=== PATIENT | male | born 1960 | race Caucasian/White ===

== ENCOUNTER 2018-08-04 12:15 | Emergency (ER) | payer OTHER ==
[~2018-08-04] VITALS: Ht 185.4 cm; Wt 59.4 kg
[~2018-08-04 12:15] MED LIST: /SYST15OP OU; ARTIDRO OU; FOLI1TAB86 PO; MULTCAP11 PO; NEXI40GR PO; NICO21PAT EXT; OCUVTA PO; PRED1SUS6 OD; PRESCAP PO; THIA50CA PO; VITACAP8 PO; [UNRECOGNIZED DRUG - OTHER] OU; [UNRECOGNIZED DRUG - REMARK] TOP
[2018-08-04] MEDS ORDERED: VENTAER (12:31)
[2018-08-04] MEDS ORDERED: TRAM50TA2 (12:31)
[2018-08-04] MEDS ORDERED: MULTIVITAMIN -ADULT INJECTION 10 ML, THIAMINE INJection 100 MG, FOLIC ACID 1 MG in NS 1... IV ONE (13:00)
[2018-08-04 13:39] LABS: BLOOD UREA NITROGEN 6 MG/DL (7-18); CARBON DIOXIDE LEVEL 27 MEQ/L (21-32); CHLORIDE LEVEL 101 MEQ/L (98-107); CREATININE FOR GFR 0.69 MG/DL (0.70-1.30); GLOMERULAR FILTRATION RATE > 60.0 (>56); GLUCOSE, FASTING 84 MG/DL (70-100); MAGNESIUM LEVEL 2.2 MG/DL (1.8-2.4); POTASSIUM SERUM 3.8 MEQ/L (3.5-5.1); SODIUM LEVEL 136 MEQ/L (136-145)
[2018-08-04 17:54] VITALS: BP 150/96
== END 2018-08-04 17:57 | disposition home or self-care (01) ==
LOC: M ED 12:15
DX: E50.9 Vitamin A deficiency, unspecified (principal); H04.121 Dry eye syndrome of right lacrimal gland; Z87.19 Personal history of other diseases of the digestive system; F17.210 Nicotine dependence, cigarettes, uncomplicated; Z79.899 Other long term (current) drug therapy
CPT/HCPCS: 36415; 80048; 83735; 84590; 96365; 96366; 99284; J3411

== ENCOUNTER 2019-09-12 01:32 | Inpatient (IN) | payer OTHER ==
[~2019-09-12] VITALS: Ht 188 cm; Wt 64.2 kg
[2019-09-12] VITALS (10 sets, daily range): BP systolic 97–116; BP diastolic 59–74
[~2019-09-12 01:32] MED LIST changes: -/SYST15OP OU; +NICO21DI3 EXT; -NICO21PAT EXT; -OCUVTA PO; +SYST1SOL OU; +TRAM50TA2 PO; +VENTAER; +[UNRECOGNIZED DRUG - CODE] PO
[2019-09-12] MEDS ORDERED: NS 1,000 ML IV ONE (01:45)
[2019-09-12] MEDS ORDERED: levETIRAcetam INJection 750 MG in D5W 100 ML IV ONE (02:00)
[2019-09-12 02:11] LABS: BASO # 0.1 10^3/uL (0.0-0.2); BASO % 0.6 % (0.0-1.0); EOS # 0.1 10^3/uL (0.0-0.5); EOS % 1.1 % (0.0-3.0); HEMATOCRIT 38.6 % (42.0-52.0); HEMOGLOBIN 13.2 g/dl (13.5-17.5); LYMPH # 1.4 10^3/uL (1.5-5.0); MEAN CORPUSCULAR HEMOGLOBIN 31.5 pg (27.0-33.0); MEAN CORPUSCULAR HGB CONC 34.2 g/dl (32.0-36.5); MEAN CORPUSCULAR VOLUME 92.1 fl (80.0-96.0); MONO # 0.8 10^3/uL (0.0-0.8); MONO % 8.5 % (0.0-5.0); NEUTROPHILS # 6.7 10^3/uL (1.5-8.5); NEUTROPHILS % 73.8 % (36.0-66.0); PLATELET COUNT, AUTOMATED 263 10^3/uL (150-450); RED BLOOD COUNT 4.19 10^6/uL (4.30-6.10)
[2019-09-12 02:45] LABS: ACETAMINOPHEN LEVEL < 2.0 UG/ML (10.0-30.0); ALBUMIN 3.6 GM/DL (3.2-5.2); ALT/SGPT 23 U/L (12-78); BILIRUBIN,DIRECT 0.1 MG/DL (0.0-0.2); BILIRUBIN,TOTAL 0.3 MG/DL (0.2-1.0); BLOOD UREA NITROGEN 8 MG/DL (7-18); CALCIUM LEVEL 8.4 MG/DL (8.8-10.2); CARBON DIOXIDE LEVEL 27 MEQ/L (21-32); CHLORIDE LEVEL 102 MEQ/L (98-107); CK-MB VALUE MASS 1.8 NG/ML (<3.6); CPK CREATINE PHOSPHOKINASE 137 U/L (39-308); CREATININE FOR GFR 0.64 MG/DL (0.70-1.30); ETHYL ALCOHOL (ETHANOL) < 0.003 % (0.000-0.010); GLOMERULAR FILTRATION RATE > 60.0 (>49); GLUCOSE, FASTING 116 MG/DL (70-100); MB/CK RELATIVE INDEX 1.31 (< OR =4); POTASSIUM SERUM 4.2 MEQ/L (3.5-5.1); SALICYLATE LEVEL 2.9 MG/DL (5.0-30.0); SODIUM LEVEL 134 MEQ/L (136-145); TOTAL PROTEIN 6.4 GM/DL (6.4-8.2); TROPONIN I < 0.02 NG/ML (< 0.10)
--- NOTE | 2019-09-12 02:50 | REPVR ---
PROCEDURE INFORMATION: Exam: CT Maxillofacial Without Contrast Exam date and time: 09/12/2019 2:04 AM Age: 59 years old Clinical indication: Other: Altered mental status TECHNIQUE: Imaging protocol: Computed tomography images of the face without contrast. Radiation optimization: All CT scans at this facility use at least one of these dose optimization techniques: automated exposure control; mA and/or kV adjustment per patient size (includes targeted exams where dose is matched to clinical indication); or iterative reconstruction. COMPARISON: No relevant prior studies available. FINDINGS: Orbits: Evidence of previous ocular surgery with right ocular lens implants. Left orbital enucleation with ocular prosthesis is noted. Sinuses: Normal. No air-fluid levels. Bones/joints: No acute fracture. Dental: Patient is edentulous. Soft tissues: Unremarkable. IMPRESSION: No acute findings. Electronically signed by: August Mcdonnell On 09/12/2019 02:50:07 AM
--- NOTE | 2019-09-12 02:52 | REPVR ---
PROCEDURE INFORMATION: Exam: CT Cervical Spine Without Contrast Exam date and time: 09/12/2019 2:04 AM Age: 59 years old Clinical indication: Other: Altered mental status TECHNIQUE: Imaging protocol: Computed tomography images of the cervical spine without contrast. Radiation optimization: All CT scans at this facility use at least one of these dose optimization techniques: automated exposure control; mA and/or kV adjustment per patient size (includes targeted exams where dose is matched to clinical indication); or iterative reconstruction. COMPARISON: No relevant prior studies available. FINDINGS: Vertebrae: Age indeterminate but likely chronic C7 compression fracture with mild height loss. Discs/Spinal canal/Neural foramina: Degenerative disc and joint disease most severe at C4-C6 with mild to moderate spinal and right moderate to severe foraminal stenosis. Soft tissues: Unremarkable. Auditory system: Debris and cerumen located in the external auditory canals. Lungs: Mild paraseptal and centrilobular emphysema within the lung apices. IMPRESSION: Age indeterminate but likely chronic C7 compression fracture with mild height loss. Electronically signed by: August Mcdonnell On 09/12/2019 02:52:31 AM
--- NOTE | 2019-09-12 02:53 | REPVR ---
PROCEDURE INFORMATION: Exam: CT Head Without Contrast Exam date and time: 09/12/2019 2:04 AM Age: 59 years old Clinical indication: Altered mental status/memory loss; Confusion or disorientation TECHNIQUE: Imaging protocol: Computed tomography of the head without contrast. Radiation optimization: All CT scans at this facility use at least one of these dose optimization techniques: automated exposure control; mA and/or kV adjustment per patient size (includes targeted exams where dose is matched to clinical indication); or iterative reconstruction. COMPARISON: No relevant prior studies available. FINDINGS: Brain: Diffuse moderate cerebral age related volume loss. Moderate patchy low attenuation in the white matter compatible with moderate chronic small vessel ischemic disease. No midline shift, mass, fluid collection, or evidence of hemorrhage. Ventricles: Ventricular enlargement proportional to volume loss. Bones/joints: Unremarkable. No acute fracture. Sinuses: Visualized sinuses are unremarkable. No fluid levels. Mastoid air cells: Visualized mastoid air cells are well aerated. Orbits: Enucleation of the left orbit with prosthesis. Soft tissues: Unremarkable. IMPRESSION: Moderate involutional changes, no acute intracranial abnormality. Electronically signed by: August Mcdonnell On 09/12/2019 02:53:10 AM
[2019-09-12] MEDS ORDERED: MORPHINE 4 MG/ML 1ML VIAL/SYRINGE (J2270) IV PRN (03:00)
[2019-09-12 03:31] LABS: AMPHETAMINES LEVEL URINE NEGATIVE (NEGATIVE); BARBITURATES URINE NEGATIVE (NEGATIVE); BENZODIAZEPINES URINE NEGATIVE (NEGATIVE); CANNABINOIDS URINE NEGATIVE (NEGATIVE); COCAINE METABOLITE URINE NEGATIVE (NEGATIVE); METHADONE URINE NEGATIVE (NEGATIVE); OPIATES URINE POSITIVE (NEGATIVE); PHENCYCLIDINE URINE NEGATIVE (NEGATIVE)
[2019-09-12] MEDS ORDERED: ARTIDRO OU (04:36)
[2019-09-12] MEDS ORDERED: PRESCAP PO (04:36)
[2019-09-12] MEDS ORDERED: FOSA70TA PO (04:36)
[2019-09-12] MEDS ORDERED: TRAZ-257 PO (04:36)
[2019-09-12] MEDS ORDERED: PROT1TAB2 PO (04:36)
[2019-09-12] MEDS ORDERED: GABA-843 PO (04:36)
[2019-09-12] MEDS ORDERED: MULTCAP PO (04:36)
[2019-09-12] MEDS ORDERED: OCUVTAB8 PO (04:36)
[2019-09-12] MEDS ORDERED: THIA100T7 PO (04:36)
[2019-09-12] MEDS ORDERED: FOLI1TAB11 PO (04:36)
[2019-09-12] MEDS ORDERED: EQL50TAB2 PO (04:37)
[2019-09-12] MEDS ORDERED: PATIENT COMMENTS (04:39)
[2019-09-12] MEDS ORDERED: LORazepam 2 MG TAB PO PRN (05:30)
[2019-09-12 05:49] LABS: INR 1.13; PROTHROMBIN TIME 14.2 SECONDS (11.8-14.0)
--- NOTE | 2019-09-12 05:50 | ECGEPIP ---
[facility] - ED Test Date: 2019-09-12 Pat Name: GRACE DUNCAN Department: Room: - Gender: Male [place] [place] [employer]: sb : 1960 Requested By: TENISHA Gerard Order Number: [id number] Reading MD: Nabil Fitch Measurements Intervals [place] Rate: 101 P: 76 TN: 141 QRS: 71 QRSD: 86 T: 78 QT: 353 QTc: 458 Interpretive Statements SINUS TACHYCARDIA MODERATE ST DEPRESSION NO PRIORS FOR COMPARISON Electronically Signed on 09-12-2019 5:50:30 EST by Nabil Fitch
[2019-09-12] MEDS ORDERED: ceFAZolin SOD 2 GM in IV 1 EA IV SCH (06:00)
[2019-09-12] MEDS: THIAMINE 100 MG TAB PO SCH ×2 (06:13→20:20)
[2019-09-12] MEDS ORDERED: LORazepam 2 MG/ML VIAL (J2060) IV PRN (06:14)
--- NOTE | 2019-09-12 06:17 | HPEPDOC ---
General Date of Admission Date of Service: Sep 12, 2019 Chief Complaint The patient is a 59-year-old male admitted with a reason for visit of [facility]. History of Present Illness Paul is a 59-year-old male with a history of alcohol abuse who presented to the emergency department after having seizure. He initially went to [facility] yesterday due to altered mental status. He was diagnosed with dehydration and sent home after receiving IV fluids. CT of the head was done, and showed age-related atrophy and microvascular ischemic changes without obvious intracranial pathology or trauma/injury. Chest x-ray, PA and lateral, showed age-related chronic interstitial changes with minimal biapical scarring. Skeletal structures demonstrate osteopenia and degenerative changes. Urinalysis showed yellow and clear urine with a specific gravity of 1.01, 1+ leukocyte Estrace, nitrite negative, urine protein/glucose/ketones negative, urine WBC 3-5 per high-powered field, and 1+ urine epithelial cells. His lactic acid was 1.5. Magnesium was 2.0. Glucose was 84. Creatinine was 0.5. Electrolytes were in balance with a sodium of 134, potassium 4.2, chloride 97, carbon dioxide 23, AST 27, ALT 26, alkaline phosphatase 71, total bilirubin 0.2, total protein 7.2, and albumin 4.1. His lipase was 120. His amylase was 46. His ammonia level was 10. His ethyl alcohol level was 0.01%. He was influenza A and B-. CBC showed a white count of 7.0, hemoglobin 14.3, hematocrit 40.5, and platelets 258. Troponin was less than 0.02. He had dinner with his family, and according to EMS documentation he passed out and fell onto his left hip. The family said it looked like he was having a seizure, and he was post ictal/unresponsive to family for about 10 minutes. Upon EMS arrival, the patient was lying supine and complaining of left hip pain. He was alert and oriented to person and time. Stroke scale was negative. He complained of 10 out of 10 hip pain, and denied headache or dizziness. He denied chest pain, shortness of breath, or nausea. His blood glucose level was 122, he was given 4 mg of morphine, and EKG revealed sinus tachycardia. Upon arrival to the emergency department, he was tachycardic with a pulse of 105. He was found to have a left hip fracture at the lesser trochanter/proximal shaft. Orthopedics was consulted, and hospitalist was called for admission/medical clearance for surgery. Imaging studies are as follows: Maxillofacial CT done 09/12/2019: No acute findings Hip/pelvis x-ray done 09/12/2019: Left hip fracture at the lesser trochanter/proximal shaft Head CT without contrast done on 09/12/2019: Moderate involutional changes, no acute intracranial abnormality Chest x-ray done 09/12/2019: Airway is midline, bony structures are intact, though the clavicles look like the images slightly rotated, and he may have some osteopenia. Cardiac silhouette is not enlarged. Diaphragmatic angles are clear, the diaphragms are somewhat flattened. Telemetry leads are in place and there are snaps in the upper chest from his gown. Chronic interstitial lung changes appreciated with with hyperinflated lungs. No consolidation is seen. Cervical spine CT done 09/12/2019: Age indeterminate, but likely chronic, C7 compression fracture with mild height loss EKG done in the emergency department shows sinus tachycardia at 101 bpm, normal axis. Minor ST depression in leads II, III and aVF; no reciprocal ST elevation Home Medications Scheduled Alendronate Sodium (Fosamax) 70 Mg Tablet, 70 MG PO 1XWK, (Reported) Folic Acid (Folic Acid) 1 Mg Tablet, 1 MG PO DAILY, (Reported) Gabapentin (Gabapentin) 300 Mg Capsule, 300 MG PO DAILY, (Reported) Glycerin/Propylene Glycol (Artificial Tears Drops) 15 Ml Drops, 2 PHI OU QID, (Reported) Multivitamin (Multivitamins) 1 Each Capsule, 1 CAP PO DAILY, (Reported) Mv-Min/FA/Vit K/Lycop/Lut/Zeax (Ocuvite Eye Plus Multi Tablet) 1 Each Tablet, 1 TAB PO BID, (Reported) Pantoprazole Sodium (Protonix) 40 Mg Tablet.dr, 40 MG PO DAILY, (Reported) Thiamine HCl (Thiamine HCl) 100 Mg Tablet, 100 MG PO DAILY, (Reported) Trazodone HCl (Trazodone HCl) 100 Mg Tablet, 100 MG PO QHS, (Reported) Vit A/Vit C/Vit E/Zinc/Copper (Preservision Areds Softgel) 1 Each Capsule, 1 CAP PO BID, (Reported) Vitamin B Complex (Vitamin B Complex) 1 Each Tablet, 1 TAB PO DAILY, (Reported) Scheduled PRN Tramadol HCl (Tramadol HCl) 50 Mg Tab, 50 MG PO Q12H PRN for PAIN, (Reported) Miscellaneous Medications [Patient Comments] , (Reported) FAMILY MEMBERS STATE PATIENT DOES NOT TAKE HIS MEDICATIONS WITH ANY REGULARITY. THE DO NOT KNOW WHEN HE HAS TAKEN WHAT MEDICATIONS. HE GENERALLY KEEPS UP WITH HIS EYEDROPS. 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 Mother in her 60s from some sort of cancer. He has 10 brothers and 3 sisters, one brother is as a baby. A couple of brothers have obesity and diabetes. A sister has diabetes. Another brother has heart problems. Social History Current smoker, between 1-1.5 packs of cigarettes per day since the age of 13. Greater than 95-arcl-beut smoking history. He drinks on average 3-8 beers daily, for greater than 30 years. He said his last drink was yesterday. He has a history of marijuana use, stating that the last time he did use was 2005. He denies any IV drug use. He is . He is on SSI disability. 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 He has not been out side of the [place], nor has he had any sick contacts A-FIB/CHADSVASC A-FIB History Current/History of A-Fib/PAF?: No Review of Systems Other systems Constitutional: Denies weight loss, waking, fevers, chills, or night sweats Eyes: Denies visual changes (has chronic left eye problems), floaters, or feeling like a curtain pulled down. Ear nose throat: Denies runny nose, epistaxis, sinus pain, tinnitus, sore throat, or odynaphasia Cardiovascular: Denies chest pain, shortness of breath, paroxysmal nocturnal dyspnea, orthopnea, edema, or palpitations. Respiratory: Denies cough, sputum production, wheezes, hemoptysis, or shortness of breath Gastrointestinal: Denies abdominal pain, difficulty swallowing, loss of a ppetite, nausea, vomiting, diarrhea, constipation, obstipation, hematemesis, hematochezia, melena, or tenesmus Musculoskeletal: Positive for acute left hip fracture as described above, with pain Integumentary: Denies pruritus, rashes, or lesions Neuro: Denies any changes to sight/smell/hearing/taste, faint, headaches, paresthesias, anesthesias. Positive for seizure Psychiatric: Denies depression, anxiety, paranoia, anhedonia, or episodes of alta. Positive for alcoholism Endocrine: Denies diarrhea, increased appetite, tremor, palpitations, constipation, dry skin, polydipsia, polyuria, polyphagia Hematologic: Denies any anemia, purpura, or petechiae Lymphatic: Denies any new lumps or bumps anywhere Physical Examination General Exam: Positive: Alert, Cooperative, No Acute Distress Eye Exam: Positive: Other Eye Symptoms (right eye: Pupil round and reactive to light. Left eye has a corneal ulceration, chronic discharge) ENT Exam: Positive: Atraumatic, Tongue Midline, Nares Patent, Other ENT (edentulous) Neck Exam: Positive: Supple; Negative: JVD, thyromegaly Chest Exam: Positive: Clear to auscultation, Normal air movement Heart Exam: Positive: Tachycardic (mildly), Regular Rhythm, Normal S1, Normal S2; Negative: Gallops, Murmurs, Rubs Telemetry: Positive: Tachycardia (105) Abdomen Exam: Positive: Normal bowel sounds, Soft; Negative: Tenderness Extremity Exam: Positive: Clubbing, Cyanosis, Normal pulses, Other (placed a posterior left hip when asked where there is pain); Negative: Edema, Swelling Skin Exam: Positive: Nl turgor and temperature; Negative: Rash, Breakdown Neuro Exam: Positive: Normal Speech, Sensation Intact; Negative: Normal Gait (not tested due to fracture) Psych Exam: Positive: Mental status NL, Mood NL, Oriented x 3 Vital Signs Vital Signs Date Time Temp Pulse Resp B/P (MAP) Pulse Ox O2 Delivery O2 Flow Rate FiO2 09/12/19 03:47 107 09/12/19 03:45 127/78 (94) 09/12/19 03:32 16 96 Room Air 09/12/19 01:50 97.9 Laboratory Data Labs 24H Laboratory Tests 2 09/12/19 02:01: Immature Granulocyte % (Auto) 1.0, Neutrophils (%) (Auto) 73.8H, Lymphocytes (%) (Auto) 15.0L, Monocytes (%) (Auto) 8.5H, Eosinophils (%) (Auto) 1.1, Basophils (%) (Auto) 0.6, Neutrophils # (Auto) 6.7, Lymphocytes # (Auto) 1.4L, Monocytes # (Auto) 0.8, Eosinophils # (Auto) 0.1, Basophils # (Auto) 0.1, Nucleated Red Blood Cells % (auto) 0.0, Urine Color YELLOW, Urine Appearance HAZY, Urine pH 7.0, Urine Specific [place] 1.006, Urine Protein NEGATIVE, Urine Glucose (UA) NEGATIVE, Urine Ketones TRACEH, Urine Blood NEGATIVE, Urine Nitrite NEGATIVE, Urine Bilirubin NEGATIVE, Urine Urobilinogen 0.2, Urine Leukocyte Esterase TRACEH, Urine WBC (Auto) 5H, Urine RBC (Auto) 2, Urine Hyaline Casts (Auto) 0, Urine Bacteria (Auto) NEGATIVE, Urine Squamous Epithelial Cells 0, Urine Amorphous Sediment SMALLH, Urine Mucus (Auto) SMALL, Urine Sperm (Auto) , Anion Gap 5L, Glomerular Filtration Rate > 60.0, Lactic Acid Level 1.2, Calcium Level 8.4L, Total Bilirubin 0.3, Direct Bilirubin 0.1, Aspartate Amino Transf (AST/SGOT) 22, Alanine Aminotransferase (ALT/SGPT) 23, Alkaline Phosphatase 63, Ammonia 19, Total Creatine Kinase 137, Creatine Kinase MB 1.8, Creatine Kinase MB Relative Index 1.31, Troponin I < 0.02, Total Protein 6.4, Albumin 3.6, Albumin/Globulin Ratio 1.29, Thyroid Stimulating Hormone (TSH) 3.480, Salicylates Level 2.9L, Urine Opiates Screen POSITIVEH, Urine Methadone Screen NEGATIVE, Acetaminophen Level < 2.0L, Urine Barbiturates Screen NEGATIVE, Urine Phencyclidine Screen NEGATIVE, Urine Amphetamines Screen NEGATIVE, Urine Benzodiazepines Screen NEGATIVE, Urine Cocaine Metabolite Screen NEGATIVE, Urine Cannabinoids Screen NEGATIVE, Ethyl Alcohol Level < 0.003 09/12/19 02:03: POC Glucose (Misc Panel) 117H, POC Sodium (Misc Panel) 133L, POC Potassium (Misc Panel) 3.9, POC Chloride (Misc Panel) 98, POC Total CO2 (Misc Panel) 24.0, POC Blood Urea Nitrogen (Misc Panel 6L, POC Ionized Calcium (Misc Panel) 4.4L, POC Creatinine (Misc Panel) 0.6, POC Hematocrit (Misc Panel) 40.0 CBC/BMP Laboratory Tests 09/12/19 02:01 Microbiology Microbiology 09/12/19 Urine Culture, Received Pending 09/12/19 Blood Culture, Received Pending 09/12/19 Blood Culture, Received Pending Assessment/Plan Assessment: This is a 59-year-old with alcohol abuse who had a seizure and fell on his left hip, resulting in a left femoral fracture at the proximal shaft/lesser t rochanter. Orthopedics is consulted, hospitalist asked for evaluation for medical clearance. Plan: 1. Medical clearance: Patient is currently alert and oriented, however he was at an increased risk for alcohol withdrawal due to a blood alcohol level less than 0.003. At the moment he is medically optimized, however we do recommend evaluation by anesthesia before proceeding with surgery. 2. Seizure. Most likely secondary to alcohol withdrawal. CIWA protocol is in place with Ativan 1 mg IV, as the patient is nothing by mouth at the moment. 3. Left hip fracture. Orthopedics consulted, pain management and anticoagulation per orthopedics. 4. GERD: Protonix IV, may switch back to oral when able to have a regular diet. 5. Osteoporosis. Status post left hip fracture. 6. DVT prophylaxis: Heparin. Disposition: Inpatient, as we expect greater than to the dates. Plan / VTE VTE Prophylaxis Ordered?: Yes GABRIELLE SEALS D.O. Sep 12, 2019 06:17 YESSICA ADORNO DO Sep 12, 2019 06:26
[2019-09-12] MEDS ORDERED: LIDOCAINE 2% INJ 100 MG/5 ML SDV (FOR ANES.) As Ordered ONE (08:01)
[2019-09-12] MEDS ORDERED: ONDANSETRON 4MG/2ML VIAL (J2405) As Ordered ONE (08:01)
[2019-09-12] MEDS ORDERED: propofoL 200 MG/20 ML VIAL As Ordered ONE (08:01)
[2019-09-12] MEDS ORDERED: MIDAZOLAM INJ 2 MG/2 ML VIAL (J2250) As Ordered ONE (08:02)
[2019-09-12] MEDS ORDERED: fentaNYL 100 MCG/2 ML INJECTION (J3010) As Ordered ONE (08:02)
[2019-09-12] MEDS ORDERED: ceFAZolin 2 GM/D5W 50 ML IV BAG (J0690 PER 500MG) As Ordered ONE (08:13)
[2019-09-12] MEDS ORDERED: HEPARIN SOD (PORCINE) 5000 UNITS/ML VIAL (J1644 PER 1000UNITS) SC SCH (09:00)
--- NOTE | 2019-09-12 09:35 | REP ---
Clinical: Altered mental status Comparison: 03/26/2013 . Findings: The mediastinum and cardiac silhouette are stable and within normal limits for portable technique. The lung gonzalez demonstrate chronic changes without acute consolidation, effusion, or pneumothorax. Skeletal structures are intact. Impression: Chronic stable changes. No acute cardiopulmonary process appreciated. Electronically Signed by Jaspal Cordoba MD 09/12/2019 09:27 A
--- NOTE | 2019-09-12 09:41 | REP ---
Clinical: Trauma. Technique: Frontal view of the pelvis with neutral and frog lateral views of the left hip. Findings: Comminuted intertrochanteric fracture of the left proximal femur. Underlying age-related degenerative changes. Impression: Comminuted intertrochanteric fracture of the left femur. Electronically Signed by Jaspal Cordoba MD 09/12/2019 09:32 A
[2019-09-12] MEDS ORDERED: CALCIUM CHLORIDE 10% 1 GM/10 ML SYR As Ordered ONE (09:48)
[2019-09-12] MEDS ORDERED: oxyCODONE 5MG TAB As Ordered ONE (10:14)
[2019-09-12] MEDS ORDERED: HYDROMORPHONE HCL 0.5 MG/ 0.5 ML SYRINGE (J1170 PER 1) IV PRN (10:30)
[2019-09-12] MEDS ORDERED: LR 1,000 ML IV SCH (10:30)
[2019-09-12] MEDS ORDERED: oxyCODONE 5MG TAB PO PRN (10:30)
[2019-09-12] MEDS ORDERED: fentaNYL 100 MCG/2 ML INJECTION (J3010) IV PRN (10:30)
[2019-09-12] MEDS ORDERED: ONDANSETRON 4MG/2ML VIAL (J2405) IV PRN (10:30)
--- NOTE | 2019-09-12 10:35 | REP ---
Clinical: Status post fixation. Technique: Intraoperative fluoroscopic imaging using portable C-arm technique. Findings: The patient is status post satisfactory open reduction and fixation for comminuted intertrochanteric left hip fracture. Total fluoroscopic time 2 minutes 23 seconds. Impression: Status post satisfactory open reduction and fixation. Electronically Signed by Jaspal Cordoba MD 09/12/2019 10:26 A
[2019-09-12] MEDS: PANTOPRAZOLE 40MG INJ (PROTONIX) (C9113) IV SCH ×2 (13:17→20:20)
[2019-09-12] MEDS: FOLIC ACID 1 MG TAB PO SCH (13:19)
[2019-09-12] MEDS: MULTIVITAMINS/MINERALS THERAP 1 TAB PO SCH (13:19)
[2019-09-12] MEDS ORDERED: PERCOCET 5MG/325MG TAB PO PRN (14:30)
[2019-09-12] MEDS: PERCOCET 5MG/325MG TAB PO PRN ×3 (14:41→23:38)
[2019-09-12] MEDS: ceFAZolin SOD 1 GM in D5W MINI-BAG PLUS 50 ML IV SCH (17:23)
[2019-09-13] VITALS (9 sets, daily range): BP systolic 101–120; BP diastolic 58–73
[2019-09-13] MEDS: ceFAZolin SOD 1 GM in D5W MINI-BAG PLUS 50 ML IV SCH ×2 (00:50→08:45)
[2019-09-13] MEDS ORDERED: ACETAMINOPHEN TAB 650MG DOSE (2X325MG) PO PRN (06:45)
[2019-09-13] MEDS: PERCOCET 5MG/325MG TAB PO PRN ×3 (06:56→19:17)
[2019-09-13] MEDS ORDERED: ACET-683 PO (06:58)
[2019-09-13] MEDS ORDERED: TRAM50TA2 PO (06:58)
[2019-09-13] MEDS ORDERED: XARE10TA PO ×2 (06:59→07:04)
[2019-09-13 07:18] LABS: HEMATOCRIT 25.5 % (42.0-52.0); MEAN CORPUSCULAR HEMOGLOBIN 32.5 pg (27.0-33.0); MEAN CORPUSCULAR HGB CONC 34.5 g/dl (32.0-36.5); MEAN CORPUSCULAR VOLUME 94.1 fl (80.0-96.0); PLATELET COUNT, AUTOMATED 216 10^3/uL (150-450); RED BLOOD COUNT 2.71 10^6/uL (4.30-6.10)
[2019-09-13 07:20] LABS: HEMOGLOBIN 8.8 g/dl (13.5-17.5)
[2019-09-13 07:28] LABS: BLOOD UREA NITROGEN 8 MG/DL (7-18); CALCIUM LEVEL 7.7 MG/DL (8.8-10.2); CARBON DIOXIDE LEVEL 27 MEQ/L (21-32); CHLORIDE LEVEL 106 MEQ/L (98-107); CREATININE FOR GFR 0.58 MG/DL (0.70-1.30); GLOMERULAR FILTRATION RATE > 60.0 (>49); GLUCOSE, FASTING 98 MG/DL (70-100); MAGNESIUM LEVEL 2.1 MG/DL (1.8-2.4); POTASSIUM SERUM 3.9 MEQ/L (3.5-5.1); SODIUM LEVEL 137 MEQ/L (136-145)
[2019-09-13] MEDS: FOLIC ACID 1 MG TAB PO SCH (08:45)
[2019-09-13] MEDS: MULTIVITAMINS/MINERALS THERAP 1 TAB PO SCH (08:45)
[2019-09-13] MEDS: THIAMINE 100 MG TAB PO SCH ×2 (08:45→20:53)
[2019-09-13] MEDS: MOM 30ML SUSPENSION UDC PO SCH (08:45)
[2019-09-13] MEDS: PANTOPRAZOLE 40MG INJ (PROTONIX) (C9113) IV SCH ×2 (08:46→20:53)
[2019-09-13] MEDS: MIRALAX *UNIT DOSE* 17GM PACKET PO SCH (08:49)
--- NOTE | 2019-09-13 10:30 | IPNPDOC ---
Subjective Date Seen The patient was seen on 09/13/19. Subjective Chief Complaint/HPI Patient is comfortable in no distress. Offers no new complaints General: Denies: ROS Unobtainable, Chills, Night Sweats, Fatigue, Malaise, Normal Appetite, Other Symptoms Constitutional: Denies: Chills, Fever, Malaise, Night Sweats, Weakness, Fatigue, Weight Loss, Lethargy, Other Pulmonary: Denies: Dyspnea, Cough, Pleuritic Chest Pain, Other Symptoms Cardiovascular: Denies: Chest Pain, Palpitations, Orthopnea, Paroxysmal Noc. Dyspnea, Edema, Lt Headedness, Other Symptoms Gastrointestinal: Denies: Nausea, Vomiting, Abdominal Pain, Diarrhea, Constipation, Melena, Hematochezia, Other Symptoms Endocrine: Denies: Polydipsia, Polyphagia, Polyuria, Heat Intolerance, Cold Intolerance, Other Endocrine Sx Musculoskeletal: Denies: Neck Pain, Back Pain, Shoulder Pain, Arm Pain, Hand Pain, Leg Pain, Foot Pain, Joint Pain, Muscle Pain, Spasms, Other Symptoms Neurological: Denies: Weakness, Numbness, Incoordination, Change in speech, Confusion, Seizures, Other Symptoms Objective Physical Examination Neck Exam: Positive: Supple Chest Exam: Positive: Clear to auscultation, Normal air movement Heart Exam: Positive: Rate Normal, Normal S1, Normal S2 Abdomen Exam: Positive: Normal bowel sounds, Soft Extremity Exam: Positive: Clubbing, Cyanosis, Normal pulses, Other (placed a posterior left hip when asked where there is pain) Skin Exam: Positive: Nl turgor and temperature Assessment /Plan Problems (1) Fracture of left hip Status: Acute Problem Text: Patient had a left hip surgery done Physical therapy is in progress Pain management will be continued Further discharge plans as per orthopedic Acute rehabilitation unit consult has been requested. If accepted. Possibly patient can be discharged to acute rehabilitation unit (2) Alcohol withdrawal seizure Status: Acute Problem Text: Continue withdrawal protocol Extensive counseling regarding abstinence from alcohol was done Patient is clinically stable. Once cleared by physical therapy can go to rehabilitation facility Attending all current meds Plan/VTE VTE Prophylaxis Ordered?: Yes VS, I&O, 24H, Fishbone Vital Signs/I&O Vital Signs Date Time Temp Pulse Resp B/P (MAP) Pulse Ox O2 Delivery O2 Flow Rate FiO2 09/13/19 10:00 97.1 121 18 110/70 (83) 94 Room Air 2/16/20 15:27 2.0 I&O- Last 24 Hours up to 6 AM 09/13/19 06:00 Intake Total 3455 ml Output Total 650 ml Balance 2805 ml Laboratory Data 24H LABS Laboratory Tests 2 09/12/19 11:42: Bedside Glucose (Misc Panel) 115 09/13/19 06:31: Nucleated Red Blood Cells % (auto) 0.0, Anion Gap 4L, Glomerular Filtration Rate > 60.0, Calcium Level 7.7L, Magnesium Level 2.1 CBC/BMP Laboratory Tests 09/13/19 06:31 Microbiology Microbiology 09/12/19 Urine Culture, Received Pending 09/12/19 Blood Culture - Preliminary, Resulted No growth after 24 hours . All specim... 09/12/19 Blood Culture - Preliminary, Resulted No growth after 24 hours . All specim... DELFINA ORTEGA MD Sep 13, 2019 10:30
[2019-09-13] MEDS: RIVAROXABAN 10 MG TAB (XARELTO) PO SCH (18:04)
[2019-09-14 02:00] VITALS: BP 119/68
[2019-09-14 05:00] VITALS: BP 136/73
[2019-09-14 06:00] VITALS: BP 136/73
[2019-09-14] MEDS: PERCOCET 5MG/325MG TAB PO PRN ×4 (06:15→21:44)
--- NOTE | 2019-09-14 07:43 | CR ---
DATE OF CONSULTATION: 09/12/2019 CHIEF COMPLAINT: Left hip pain. HISTORY OF PRESENT ILLNESS: Patient states he was over at his son's house for dinner when, per family report, he fell onto his left side and was concerned for potentially having a seizure. Upon awakening from a postictal period, he complained of significant left hip pain, very sharp, 10/10. It was made worse with any sort of range of motion or movement and alleviated only with immobilization and pain medication. He denies any fevers, chills, nausea, vomiting, or pain elsewhere. Of note, the patient has a history of significant alcohol abuse. Complete 10-system review was conducted. Pertinent positives and negatives in history of present illness (HPI). All other systems negative. ALLERGIES: No known drug allergies. PAST MEDICAL HISTORY: Alcohol abuse. Recurrent seizures. Multiple compression fractures. Chronic obstructive pulmonary disease (COPD). Tobacco dependence, about a pack and a half per day. Left eye blindness. Left corneal ulcer. Heart murmur as a child. SURGICAL HISTORY: Appendectomy. Keratoplasty of left eye. Corneal graft in left eye. HOME MEDICATIONS: - alendronate - gabapentin - pantoprazole - thiamine - trazodone - multiple vitamins SOCIAL HISTORY: Smokes between 1 and 1-1/2 packs a day with a 50-year period of smoking. Drinks 3-8 beers daily for more than 30 years. His last drink was over a day ago. He has a history of marijuana use. Denies any IV drug abuse. He is . He is on SSI disability. FAMILY HISTORY: Father of a heart attack at 59. Mother at 60 from some sort of cancer. Ten brothers, two sisters. Couple brothers have obesity and diabetes. Sister has diabetes. PHYSICAL EXAMINATION: Patient is awake, alert, oriented, well dressed, appropriate affect, thin man. Normocephalic, atraumatic. cachetic appearing. BILATERAL UPPER EXTREMITIES: No tenderness to palpable. Full active range of motion of the shoulders, elbows, and wrists without any tenderness or discomfort. Skin is intact. Radial pulse 2+, regular rate. Sensation intact to light touch superficial peroneal, deep peroneal, sural, saphenous, and tibia distributions Positive anterior interosseous nerve (AIN), posterior interosseous nerve (PIN), and ulnar motor function. RIGHT LOWER EXTREMITY: No tenderness to palpation. Negative log roll. Positive extensor hallucis longus (EHL), flexor hallucis longus (FHL), tibialis, and gastroc motor function. Skin is intact. Posterior tibial pulse 2+, regular rate. Sensation intact to light touch superficial peroneal, deep peroneal, sural, saphenous, and tibial distributions. LEFT LOWER EXTREMITY: Tender to palpation over the left hip. Positive log roll. Positive EHL, FHL, tibialis, and gastroc motor function. Sensation intact to light touch superficial peroneal, deep peroneal, sural, saphenous, and tibial distributions. Skin intact. Posterior tibial pulse 2+, regular rate. Imaging reviewed. X-rays of pelvis and left hip demonstrate comminuted intertrochanteric hip fracture. DIAGNOSIS: Left intertrochanteric hip fracture. I explained to the patient that in order to increase his mobility and preserve his cardiovascular health and pulmonary health, we need to have this operated on and fixed in order to increase his mobility. We discussed the risks and benefits of this including, but not limited to, infection, damage to surrounding structures, incomplete relief, malunion, nonunion. Patient wished to proceed. Consent was obtained. He is currently nothing by mouth, has not had anything to eat or drink since the night before. His blood alcohol level was negative. He will be placed on Clinical [place] Withdrawal Assessment for Alcohol (CIWA) protocol. We will give him Surgical Care Improvement Project (SCIP) antibiotic prophylaxis. He will be weightbearing as tolerated of the left lower extremity postoperatively and get him out of bed. Appreciate medicine admission and clearance. DAVID
[2019-09-14] MEDS: MULTIVITAMINS/MINERALS THERAP 1 TAB PO SCH (08:38)
[2019-09-14] MEDS: PANTOPRAZOLE 40MG INJ (PROTONIX) (C9113) IV SCH ×2 (08:38→21:43)
[2019-09-14] MEDS: MOM 30ML SUSPENSION UDC PO SCH (08:38)
[2019-09-14] MEDS: MIRALAX *UNIT DOSE* 17GM PACKET PO SCH (08:38)
[2019-09-14] MEDS: THIAMINE 100 MG TAB PO SCH ×2 (08:38→21:43)
[2019-09-14] MEDS: FOLIC ACID 1 MG TAB PO SCH (08:38)
--- NOTE | 2019-09-14 12:06 | IPNPDOC ---
Subjective Date Seen The patient was seen on 09/14/19. Subjective Chief Complaint/HPI Seen and examined at bedside, doing well today with no specific complaints. General: Reports: Normal Appetite; Denies: Chills, Night Sweats, Fatigue, Malaise Constitutional: Denies: Chills, Fever, Night Sweats Eyes: Denies: Pain, Vision change ENT: Denies: Head Aches, Ear Pain, Dysphagia Skin: Denies: Rash, Lesions, Breakdown Pulmonary: Denies: Dyspnea, Cough Cardiovascular: Denies: Chest Pain, Palpitations, Orthopnea, Paroxysmal Noc. Dyspnea, Lt Headedness Gastrointestinal: Denies: Nausea, Vomiting, Abdominal Pain, Diarrhea, Constipation Genitourinary: Denies: Dysuria, Frequency, Incontinence, Retention Hematologic: Denies: Bruising, Bleeding Excessively Musculoskeletal: Denies: Neck Pain, Back Pain, Joint Pain, Muscle Pain, Spasms Neurological: Denies: Weakness, Numbness, Change in speech, Confusion Psych: Reports: Mood Normal; Denies: Depression, Memory Issues Objective Physical Examination General Exam: Positive: Alert, No Acute Distress Eye Exam: Positive: PERRLA, Conjunctiva & lids normal, EOMI; Negative: Sclera icteric ENT Exam: Positive: Atraumatic, Mucous membr. moist/pink, Pharynx Normal Neck Exam: Positive: Supple Chest Exam: Positive: Clear to auscultation, Normal air movement Heart Exam: Positive: Rate Normal, Normal S1, Normal S2 Telemetry: Positive: No significant arrhythmia Abdomen Exam: Positive: Normal bowel sounds, Soft Male Exam: Positive: Normal Genital Exam Extremity Exam: Positive: Clubbing, Cyanosis, Normal pulses, Other (placed a posterior left hip when asked where there is pain) Skin Exam: Positive: Nl turgor and temperature, Rash, Breakdown, Lesion, Pruritus, Other skin issue (surgical site clear, no drainage/erythema) Neuro Exam: Positive: Normal Gait, Normal Speech, Cranial Nerves 3-12 NL, Reflexes 2+ Psych Exam: Positive: Mental status NL, Mood NL, Oriented x 3 Assessment /Plan Assessment 1. L intertrochanteric hip fracture s/p surgical repair - PT/OT as tolerated. - pain control prn. - DVT ppx as per orthopedics. - ARU consult requested. 2. alcohol dependence with withdrawal - counselling regarding alcohol abstinence. - medical cleared to go to rehab facility once cleared by PT/ortho. 3. acute blood loss anemia - monitor for now. Plan/VTE VTE Prophylaxis Ordered?: Yes VS, I&O, 24H, Fishbone Vital Signs/I&O Vital Signs Date Time Temp Pulse Resp B/P (MAP) Pulse Ox O2 Delivery O2 Flow Rate FiO2 09/14/19 11:15 18 09/14/19 06:00 98.0 117 136/73 (94) 91 Room Air 09/12/19 15:27 2.0 I&O- Last 24 Hours up to 6 AM 09/14/19 06:00 Intake Total 1200 ml Output Total 570 ml Balance 630 ml Laboratory Data Microbiology Microbiology 09/12/19 Urine Culture, Received Pending 09/12/19 Blood Culture - Preliminary, Resulted No Growth after 48 hours. All Specime... 09/12/19 Blood Culture - Preliminary, Resulted No Growth after 48 hours. All Specime... JEANNETTE DAN MD Sep 14, 2019 12:06
--- NOTE | 2019-09-14 13:06 | RO ---
DATE OF OPERATION: 09/12/2019 PREOPERATIVE DIAGNOSIS: Left intertrochanteric femur fracture. POSTOPERATIVE DIAGNOSIS: Left intertrochanteric femur fracture. PROCEDURE: Left femur intramedullary nail. INDICATION: A 59-year-old male who suffered a fall after a seizure with a known history of alcoholism and suffered a left intertrochanteric hip fracture. In order to improve his mobility, we recommended operative intervention. We discussed all risks and benefits, including but not limited to infection, damage to surrounding structures, incomplete relief, malunion, nonunion. The patient wished to proceed. SURGEON: Amado Barrett MD CARBON PRINTER: None. PREOPERATIVE ANTIBIOTICS: 2 grams of Ancef. COMPLICATIONS: None. BLOOD LOSS: 150 mL. ANESTHESIA: Spinal. IMPLANTS: Left 125-degree Synthes TFN. OPERATIVE DESCRIPTION: The patient was brought back to the operating room (OR) in the supine position, underwent spinal anesthesia, at which point the left leg was prepped and draped and placed into the fracture table. We then had time- out, confirmed side and site of surgery. Once in agreement, we took initial x-rays after applying traction. We were able to line it up on the AP view, but on the lateral view, there was significant apex anterior. We then made a stab incision over the anterior thigh and bluntly dissected deep with a tonsil and use a ball spike to reduce the fracture. We were able to get adequate reduction at this point, we did lateral start point confirmed on AP and lateral on the tip of the greater trochanter. We had used entry reamer and passed a guidewire all the way down to the knee, measured a 440-mm nail, at which point we sequentially reamed up 12.5mm using a size 11 nail. We then inserted the nail down the canal. Once this was seated, we used a ball spike to reduce the fracture. I then passed the kwire past the fracture while reducing it that was confirmed on lateral. Used a K wire to pass in subchondral bone. We measured to be 110. Used a 105 helical blade. Once inserting this, however, the helical blade penetrated into the fovea of the femoral head. Therefore, we exchanged it for a 100 mm helical blade. At this point, we locked the helical blade in place. We were happy with that on AP and lateral, both of the fixation and the reduction. We then turned our attention distally and did two perfect iliamna technique interlocking screws through the static and dynamic hole within the static position. These were confirmed on AP and lateral. We took our final films and were very happy on both AP and lateral, both proximally and distally, with satisfactory reduction and fixation. We irrigated the wounds thoroughly, closed with 2-0 Vicryl, axel, gauze, and Tegaderm. The patient was then awakened from anesthesia and taken to the postanesthesia care unit (PACU) in stable condition. POSTOPERATIVE PLAN: The patient will get Surgical Care Improvement Project (SCIP) antibiotic prophylaxis, start on deep venous thrombosis (DVT) prophylaxis, be weightbearing as tolerated, and get out of bed with physical therapy (PT) and occupational therapy (OT). DAVID
[2019-09-14 14:00] VITALS: BP 102/62
[2019-09-14 14:01] VITALS: BP 122/70
[2019-09-14] MEDS: RIVAROXABAN 10 MG TAB (XARELTO) PO SCH (17:53)
[2019-09-14 20:43] VITALS: BP 122/68
[2019-09-15 01:40] VITALS: BP 122/68
[2019-09-15] MEDS: PERCOCET 5MG/325MG TAB PO PRN ×4 (02:55→20:57)
[2019-09-15 06:00] VITALS: BP 125/70
[2019-09-15 06:02] VITALS: BP 125/70
[2019-09-15 06:55] LABS: HEMATOCRIT 23.1 % (42.0-52.0); HEMOGLOBIN 7.9 g/dl (13.5-17.5); MEAN CORPUSCULAR HEMOGLOBIN 32.6 pg (27.0-33.0); MEAN CORPUSCULAR HGB CONC 34.2 g/dl (32.0-36.5); MEAN CORPUSCULAR VOLUME 95.5 fl (80.0-96.0); PLATELET COUNT, AUTOMATED 299 10^3/uL (150-450); RED BLOOD COUNT 2.42 10^6/uL (4.30-6.10); WHITE BLOOD COUNT 9.4 10^3/uL (4.0-10.0)
[2019-09-15 07:13] LABS: BLOOD UREA NITROGEN 12 MG/DL (7-18); CALCIUM LEVEL 7.9 MG/DL (8.8-10.2); CARBON DIOXIDE LEVEL 27 MEQ/L (21-32); CHLORIDE LEVEL 106 MEQ/L (98-107); CREATININE FOR GFR 0.61 MG/DL (0.70-1.30); GLOMERULAR FILTRATION RATE > 60.0 (>49); GLUCOSE, FASTING 101 MG/DL (70-100); SODIUM LEVEL 138 MEQ/L (136-145)
[2019-09-15] MEDS: MULTIVITAMINS/MINERALS THERAP 1 TAB PO SCH (09:53)
[2019-09-15] MEDS: PANTOPRAZOLE 40MG INJ (PROTONIX) (C9113) IV SCH ×2 (09:53→20:57)
[2019-09-15] MEDS: FOLIC ACID 1 MG TAB PO SCH (09:53)
[2019-09-15] MEDS: NICOTINE 21MG/24HR 1 EA TRANSDERMAL TD SCH (09:53)
[2019-09-15] MEDS: MIRALAX *UNIT DOSE* 17GM PACKET PO SCH (09:55)
[2019-09-15] MEDS: MOM 30ML SUSPENSION UDC PO SCH (09:55)
--- NOTE | 2019-09-15 10:54 | IPNPDOC ---
Subjective Date Seen The patient was seen on 09/15/19. Subjective Chief Complaint/HPI Seen and examined at bedside, no specific complaints today. General: Reports: Normal Appetite; Denies: Chills, Night Sweats, Fatigue, Malaise Constitutional: Denies: Chills, Fever, Night Sweats Eyes: Denies: Pain, Vision change ENT: Denies: Head Aches, Ear Pain, Dysphagia Skin: Denies: Rash, Lesions, Breakdown Pulmonary: Denies: Dyspnea, Cough Cardiovascular: Denies: Chest Pain, Palpitations, Orthopnea, Paroxysmal Noc. Dyspnea, Lt Headedness Gastrointestinal: Denies: Nausea, Vomiting, Abdominal Pain, Diarrhea, Constipation Genitourinary: Denies: Dysuria, Frequency, Incontinence, Retention Hematologic: Denies: Bruising, Bleeding Excessively Musculoskeletal: Denies: Neck Pain, Back Pain, Joint Pain, Muscle Pain, Spasms Neurological: Denies: Weakness, Numbness, Change in speech, Confusion Psych: Reports: Mood Normal; Denies: Depression, Memory Issues Objective Physical Examination General Exam: Positive: Alert, No Acute Distress Eye Exam: Positive: PERRLA, Conjunctiva & lids normal, EOMI; Negative: Sclera icteric ENT Exam: Positive: Atraumatic, Mucous membr. moist/pink, Pharynx Normal Neck Exam: Positive: Supple Chest Exam: Positive: Clear to auscultation, Normal air movement Heart Exam: Positive: Rate Normal, Normal S1, Normal S2 Telemetry: Positive: No significant arrhythmia Abdomen Exam: Positive: Normal bowel sounds, Soft Male Exam: Positive: Normal Genital Exam Extremity Exam: Positive: Clubbing, Cyanosis, Normal pulses, Other (placed a posterior left hip when asked where there is pain) Skin Exam: Positive: Nl turgor and temperature, Rash, Breakdown, Lesion, Pruritus, Other skin issue (surgical site clear, no drainage/erythema) Neuro Exam: Positive: Normal Gait, Normal Speech, Cranial Nerves 3-12 NL, Reflexes 2+ Psych Exam: Positive: Mental status NL, Mood NL, Oriented x 3 Assessment /Plan Assessment 1. L intertrochanteric hip fracture s/p surgical repair - PT/OT as tolerated. - pain control prn. - DVT ppx as per orthopedics. - ARU consult requested. 2. alcohol dependence with withdrawal - counselling regarding alcohol abstinence. - medical cleared to go to rehab facility once cleared by PT/ortho. 3. acute blood loss anemia - monitor for now. - transfuse as need for Hgb < 7. Plan/VTE VTE Prophylaxis Ordered?: Yes VS, I&O, 24H, Fishbone Vital Signs/I&O Vital Signs Date Time Temp Pulse Resp B/P (MAP) Pulse Ox O2 Delivery O2 Flow Rate FiO2 09/15/19 08:30 16 09/15/19 06:02 98.9 109 125/70 (88) 94 Room Air 09/12/19 15:27 2.0 I&O- Last 24 Hours up to 6 AM 09/15/19 06:00 Intake Total 1960 ml Output Total 550 ml Balance 1410 ml Laboratory Data 24H LABS Laboratory Tests 2 09/15/19 06:39: Nucleated Red Blood Cells % (auto) 0.0, Anion Gap 5L, Glomerular Filtration Rate > 60.0, Calcium Level 7.9L CBC/BMP Laboratory Tests 09/15/19 06:39 Microbiology Microbiology 09/12/19 Urine Culture, Received Pending 09/12/19 Blood Culture - Preliminary, Resulted No Growth after 72 hours. All specime... 09/12/19 Blood Culture - Preliminary, Resulted No Growth after 72 hours. All specime... JEANNETTE DAN MD Sep 15, 2019 10:54
[2019-09-15 14:00] VITALS: BP_SYST 120; BP_SYST 149; BP_DIAS 68; BP_DIAS 85
[2019-09-15] MEDS: RIVAROXABAN 10 MG TAB (XARELTO) PO SCH (18:06)
[2019-09-15 22:00] VITALS: BP 123/74
[2019-09-16] VITALS (8 sets, daily range): BP systolic 110–132; BP diastolic 70–82
[2019-09-16] MEDS: PERCOCET 5MG/325MG TAB PO PRN ×2 (05:14→22:09)
[2019-09-16 07:26] LABS: HEMATOCRIT 21.6 % (42.0-52.0); HEMOGLOBIN 7.3 g/dl (13.5-17.5); MEAN CORPUSCULAR HEMOGLOBIN 32.2 pg (27.0-33.0); MEAN CORPUSCULAR HGB CONC 33.8 g/dl (32.0-36.5); MEAN CORPUSCULAR VOLUME 95.2 fl (80.0-96.0); PLATELET COUNT, AUTOMATED 319 10^3/uL (150-450); RED BLOOD COUNT 2.27 10^6/uL (4.30-6.10); WHITE BLOOD COUNT 7.7 10^3/uL (4.0-10.0)
[2019-09-16] MEDS ORDERED: NS 1,000 ML IV SCH (07:27)
[2019-09-16 07:47] LABS: BLOOD UREA NITROGEN 12 MG/DL (7-18); CALCIUM LEVEL 8.2 MG/DL (8.8-10.2); CARBON DIOXIDE LEVEL 26 MEQ/L (21-32); CHLORIDE LEVEL 106 MEQ/L (98-107); CREATININE FOR GFR 0.55 MG/DL (0.70-1.30); GLOMERULAR FILTRATION RATE > 60.0 (>49); GLUCOSE, FASTING 87 MG/DL (70-100); POTASSIUM SERUM 3.9 MEQ/L (3.5-5.1); SODIUM LEVEL 136 MEQ/L (136-145)
[2019-09-16] MEDS ORDERED: MAGNESIUM CITRATE 300 ML BTL PO ONE (08:00)
[2019-09-16] MEDS: MOM 30ML SUSPENSION UDC PO SCH (09:43)
[2019-09-16] MEDS: FOLIC ACID 1 MG TAB PO SCH (09:44)
[2019-09-16] MEDS: MIRALAX *UNIT DOSE* 17GM PACKET PO SCH (09:44)
[2019-09-16] MEDS: MULTIVITAMINS/MINERALS THERAP 1 TAB PO SCH (09:44)
[2019-09-16] MEDS: NICOTINE 21MG/24HR 1 EA TRANSDERMAL TD SCH (09:44)
[2019-09-16] MEDS: PANTOPRAZOLE 40MG TAB (PROTONIX) PO SCH (09:44)
[2019-09-16] MEDS ORDERED: MAGNESIUM CITRATE 300 ML BTL PO PRN (11:00)
--- NOTE | 2019-09-16 12:26 | IPNPDOC ---
Subjective Date Seen The patient was seen on 09/16/19. Subjective Chief Complaint/HPI Seen and examined at bedside, no specific complaints. General: Reports: Normal Appetite; Denies: Chills, Night Sweats, Fatigue, Malaise Constitutional: Denies: Chills, Fever, Night Sweats Eyes: Denies: Pain, Vision change ENT: Denies: Head Aches, Ear Pain, Dysphagia Skin: Denies: Rash, Lesions, Breakdown Pulmonary: Denies: Dyspnea, Cough Cardiovascular: Denies: Chest Pain, Palpitations, Orthopnea, Paroxysmal Noc. Dyspnea, Lt Headedness Gastrointestinal: Denies: Nausea, Vomiting, Abdominal Pain, Diarrhea, Constipation Genitourinary: Denies: Dysuria, Frequency, Incontinence, Retention Hematologic: Denies: Bruising, Bleeding Excessively Musculoskeletal: Denies: Neck Pain, Back Pain, Joint Pain, Muscle Pain, Spasms Neurological: Denies: Weakness, Numbness, Change in speech, Confusion Psych: Reports: Mood Normal; Denies: Depression, Memory Issues Objective Physical Examination General Exam: Positive: Alert, No Acute Distress Eye Exam: Positive: PERRLA, Conjunctiva & lids normal, EOMI; Negative: Sclera icteric ENT Exam: Positive: Atraumatic, Mucous membr. moist/pink, Pharynx Normal Neck Exam: Positive: Supple Chest Exam: Positive: Clear to auscultation, Normal air movement Heart Exam: Positive: Rate Normal, Normal S1, Normal S2 Telemetry: Positive: No significant arrhythmia Abdomen Exam: Positive: Normal bowel sounds, Soft Male Exam: Positive: Normal Genital Exam Extremity Exam: Positive: Clubbing, Cyanosis, Normal pulses, Other (placed a posterior left hip when asked where there is pain) Skin Exam: Positive: Nl turgor and temperature, Rash, Breakdown, Lesion, Pru ritus, Other skin issue (surgical site clear, no drainage/erythema) Neuro Exam: Positive: Normal Gait, Normal Speech, Cranial Nerves 3-12 NL, Reflexes 2+ Psych Exam: Positive: Mental status NL, Mood NL, Oriented x 3 Assessment /Plan Assessment 1. L intertrochanteric hip fracture s/p surgical repair - PT/OT. - pain control prn. - DVT ppx. 2. alcohol dependence with withdrawal - counselling regarding alcohol abstinence. 3. acute blood loss anemia - transfuse 1U PRBC, repeat CBC. Plan/VTE VTE Prophylaxis Ordered?: Yes VS, I&O, 24H, Fishbone Vital Signs/I&O Vital Signs Date Time Temp Pulse Resp B/P (MAP) Pulse Ox O2 Delivery O2 Flow Rate FiO2 09/16/19 11:30 98.8 110 18 127/80 97 Room Air 09/12/19 15:27 2.0 I&O- Last 24 Hours up to 6 AM 09/16/19 06:00 Intake Total 1160 ml Output Total 650 ml Balance 510 ml Laboratory Data 24H LABS Laboratory Tests 2 09/16/19 07:03: Nucleated Red Blood Cells % (auto) 0.0, Anion Gap 4L, Glomerular Filtration Rate > 60.0, Calcium Level 8.2L CBC/BMP Laboratory Tests 09/16/19 07:03 Microbiology Microbiology 09/12/19 Urine Culture - Final, Complete Streptococcus Sanguinis 09/12/19 Blood Culture - Preliminary, Resulted No Growth after 72 hours. All specime... 09/12/19 Blood Culture - Preliminary, Resulted No Growth after 72 hours. All specime... JEANNETTE DAN MD Sep 16, 2019 12:26
[2019-09-16 15:02] LABS: HEMATOCRIT 27.6 % (42.0-52.0); HEMOGLOBIN 9.7 g/dl (13.5-17.5); MEAN CORPUSCULAR HEMOGLOBIN 32.7 pg (27.0-33.0); MEAN CORPUSCULAR HGB CONC 35.1 g/dl (32.0-36.5); MEAN CORPUSCULAR VOLUME 92.9 fl (80.0-96.0); PLATELET COUNT, AUTOMATED 387 10^3/uL (150-450); RED BLOOD COUNT 2.97 10^6/uL (4.30-6.10); WHITE BLOOD COUNT 10.3 10^3/uL (4.0-10.0)
[2019-09-16] MEDS: RIVAROXABAN 10 MG TAB (XARELTO) PO SCH (18:16)
[2019-09-17] MEDS: PERCOCET 5MG/325MG TAB PO PRN ×3 (05:50→18:38)
[2019-09-17 08:08] LABS: HEMATOCRIT 28.6 % (42.0-52.0); HEMOGLOBIN 9.7 g/dl (13.5-17.5); MEAN CORPUSCULAR HGB CONC 33.9 g/dl (32.0-36.5); MEAN CORPUSCULAR VOLUME 94.4 fl (80.0-96.0); PLATELET COUNT, AUTOMATED 390 10^3/uL (150-450); RED BLOOD COUNT 3.03 10^6/uL (4.30-6.10); WHITE BLOOD COUNT 8.4 10^3/uL (4.0-10.0)
[2019-09-17] MEDS: MOM 30ML SUSPENSION UDC PO SCH (09:00)
[2019-09-17] MEDS: MIRALAX *UNIT DOSE* 17GM PACKET PO SCH (09:00)
[2019-09-17] MEDS: FOLIC ACID 1 MG TAB PO SCH (09:03)
[2019-09-17] MEDS: PANTOPRAZOLE 40MG TAB (PROTONIX) PO SCH (09:03)
[2019-09-17] MEDS: MULTIVITAMINS/MINERALS THERAP 1 TAB PO SCH (09:03)
[2019-09-17] MEDS: NICOTINE 21MG/24HR 1 EA TRANSDERMAL TD SCH (09:04)
[2019-09-17 14:00] VITALS: BP 123/73
[2019-09-17] MEDS: RIVAROXABAN 10 MG TAB (XARELTO) PO SCH (17:48)
[2019-09-17 22:00] VITALS: BP 147/81
[2019-09-18] MEDS: PERCOCET 5MG/325MG TAB PO PRN ×4 (01:09→20:49)
[2019-09-18 06:00] VITALS: BP 145/83
[2019-09-18] MEDS ORDERED: XARE10TA PO (06:04)
[2019-09-18] MEDS: MIRALAX *UNIT DOSE* 17GM PACKET PO SCH (09:00)
[2019-09-18] MEDS: MOM 30ML SUSPENSION UDC PO SCH (09:00)
[2019-09-18] MEDS: NICOTINE 21MG/24HR 1 EA TRANSDERMAL TD SCH (10:22)
[2019-09-18] MEDS: PANTOPRAZOLE 40MG TAB (PROTONIX) PO SCH (10:23)
[2019-09-18] MEDS: MULTIVITAMINS/MINERALS THERAP 1 TAB PO SCH (10:23)
[2019-09-18] MEDS: FOLIC ACID 1 MG TAB PO SCH (10:23)
[2019-09-18 14:00] VITALS: BP 141/82
--- NOTE | 2019-09-18 14:37 | IPNPDOC ---
Subjective Date Seen The patient was seen on 09/18/19. Subjective Chief Complaint/HPI seen and examined at bedside, no complaints. General: Reports: Normal Appetite; Denies: Chills, Night Sweats, Fatigue, Malaise Constitutional: Denies: Chills, Fever, Night Sweats Eyes: Denies: Pain, Vision change ENT: Denies: Head Aches, Ear Pain, Dysphagia Skin: Denies: Rash, Lesions, Breakdown Pulmonary: Denies: Dyspnea, Cough Cardiovascular: Denies: Chest Pain, Palpitations, Orthopnea, Paroxysmal Noc. Dyspnea, Lt Headedness Gastrointestinal: Denies: Nausea, Vomiting, Abdominal Pain, Diarrhea, Constipation Genitourinary: Denies: Dysuria, Frequency, Incontinence, Retention Hematologic: Denies: Bruising, Bleeding Excessively Musculoskeletal: Denies: Neck Pain, Back Pain, Joint Pain, Muscle Pain, Spasms Neurological: Denies: Weakness, Numbness, Change in speech, Confusion Psych: Reports: Mood Normal; Denies: Depression, Memory Issues Objective Physical Examination General Exam: Positive: Alert, No Acute Distress Eye Exam: Positive: PERRLA, Conjunctiva & lids normal, EOMI; Negative: Sclera icteric ENT Exam: Positive: Atraumatic, Mucous membr. moist/pink, Pharynx Normal Neck Exam: Positive: Supple Chest Exam: Positive: Clear to auscultation, Normal air movement Heart Exam: Positive: Rate Normal, Normal S1, Normal S2 Telemetry: Positive: No significant arrhythmia Abdomen Exam: Positive: Normal bowel sounds, Soft Male Exam: Positive: Normal Genital Exam Extremity Exam: Positive: Clubbing, Cyanosis, Normal pulses, Other (placed a posterior left hip when asked where there is pain) Skin Exam: Positive: Nl turgor and temperature, Rash, Breakdown, Lesion, Pruritus, Other skin issue (surgical site clear, no drainage/erythema) Neuro Exam: Positive: Normal Gait, Normal Speech, Cranial Nerves 3-12 NL, Reflexes 2+ Psych Exam: Positive: Mental status NL, Mood NL, Oriented x 3 Assessment /Plan Assessment 1. L intertrochanteric hip fracture s/p surgical repair - PT/OT. - pain control prn. - DVT ppx. 2. alcohol dependence with withdrawal - counselling regarding alcohol abstinence. 3. acute blood loss anemia - Hgb stable Disposition: NH placement Plan/VTE VTE Prophylaxis Ordered?: Yes VS, I&O, 24H, Fishbone Vital Signs/I&O Vital Signs Date Time Temp Pulse Resp B/P (MAP) Pulse Ox O2 Delivery O2 Flow Rate FiO2 09/18/19 14:00 98.0 111 18 141/82 (101) 98 Room Air 09/12/19 15:27 2.0 I&O- Last 24 Hours up to 6 AM 09/18/19 05:59 Intake Total 1290 ml Output Total 300 ml Balance 990 ml Laboratory Data Microbiology Microbiology 09/12/19 Urine Culture - Final, Complete Streptococcus Sanguinis 09/12/19 Blood Culture - Final, Complete NO GROWTH AFTER 5 DAYS 09/12/19 Blood Culture - Final, Complete NO GROWTH AFTER 5 DAYS JEANNETTE DAN MD Sep 18, 2019 14:37
[2019-09-18] MEDS: RIVAROXABAN 10 MG TAB (XARELTO) PO SCH (17:47)
[2019-09-18 22:00] VITALS: BP 140/82
[2019-09-19] VITALS (47 sets, daily range): BP systolic 70–159; BP diastolic 45–87
[2019-09-19] MEDS: PERCOCET 5MG/325MG TAB PO PRN ×2 (02:08→09:12)
[2019-09-19] MEDS ORDERED: NS 1,000 ML IV ONE ×3 (06:30→13:00)
[2019-09-19] MEDS ORDERED: NS 500 ML IV ONE (08:00)
--- NOTE | 2019-09-19 08:51 | IPNPDOC ---
Subjective Date Seen The patient was seen on 09/19/19. Subjective Chief Complaint/HPI Seen and examined at bedside, pale appearing, c/o pain lateral chest wall b/l, denies cp/pressure, N/V, headaches, shortness of breath. General: Reports: Normal Appetite; Denies: Chills, Night Sweats, Fatigue, Malaise Constitutional: Denies: Chills, Fever, Night Sweats Eyes: Denies: Pain, Vision change ENT: Denies: Head Aches, Ear Pain, Dysphagia Skin: Denies: Rash, Lesions, Breakdown Pulmonary: Denies: Dyspnea, Cough Cardiovascular: Denies: Chest Pain, Palpitations, Orthopnea, Paroxysmal Noc. Dyspnea, Lt Headedness Gastrointestinal: Denies: Nausea, Vomiting, Abdominal Pain, Diarrhea, Constipation Genitourinary: Denies: Dysuria, Frequency, Incontinence, Retention Hematologic: Denies: Bruising, Bleeding Excessively Musculoskeletal: Denies: Neck Pain, Back Pain, Joint Pain, Muscle Pain, Spasms Neurological: Denies: Weakness, Numbness, Change in speech, Confusion Psych: Reports: Mood Normal; Denies: Depression, Memory Issues Objective Physical Examination General Exam: Positive: Alert, No Acute Distress, Mild Distress Eye Exam: Positive: PERRLA, Conjunctiva & lids normal, EOMI; Negative: Sclera icteric ENT Exam: Positive: Atraumatic, Mucous membr. moist/pink, Pharynx Normal Neck Exam: Positive: Supple Chest Exam: Positive: Clear to auscultation, Normal air movement, Diminished, Other (tenderness R lateral chest wall) Heart Exam: Positive: Rate Normal, Normal S1, Normal S2 Telemetry: Positive: No significant arrhythmia, Tachycardia Abdomen Exam: Positive: Normal bowel sounds, BS Hypoactive, Soft, Tenderness Male Exam: Positive: Normal Genital Exam Extremity Exam: Positive: Clubbing, Cyanosis, Normal pulses, Other (placed a posterior left hip when asked where there is pain) Skin Exam: Positive: Nl turgor and temperature, Rash, Breakdown, Lesion, Pruritus, Other skin issue (surgical site clear, no drainage/erythema) Neuro Exam: Positive: Normal Gait, Normal Speech, Cranial Nerves 3-12 NL, Reflexes 2+ Psych Exam: Positive: Mental status NL, Mood NL, Anxiety, Oriented x 3 Assessment /Plan Assessment 1. acute blood loss anemia - Hgb 6.4 on AM labs. - CT A/P with large subcapsular intrasplenic hematoma. - transfusing 2U PRBC, will likely require additional, serial H/H. - IVF NS, central line placed by cilnical scientist. - patient to be transferred to MICU for continued care. - consult to surgery/vascular recommendations. 2. L intertrochanteric hip fracture s/p surgical repair - Xarelto on hold secondary to #1. 3. alcohol dependence with withdrawal - counselling regarding alcohol abstinence. Plan/VTE VTE Prophylaxis Ordered?: Yes VS, I&O, 24H, Fishbone Vital Signs/I&O Vital Signs Date Time Temp Pulse Resp B/P (MAP) Pulse Ox O2 Delivery O2 Flow Rate FiO2 09/19/19 06:30 2.0 09/19/19 06:29 103 92/59 (70) 94 09/19/19 05:30 98.0 18 Room Air I&O- Last 24 Hours up to 6 AM 09/19/19 06:00 Intake Total 1740 ml Output Total 1050 ml Balance 690 ml Laboratory Data Microbiology Microbiology 09/12/19 Urine Culture - Final, Complete Streptococcus Sanguinis 09/12/19 Blood Culture - Final, Complete NO GROWTH AFTER 5 DAYS 09/12/19 Blood Culture - Final, Complete NO GROWTH AFTER 5 DAYS JEANNETTE DAN MD Sep 19, 2019 08:51
[2019-09-19] MEDS: MIRALAX *UNIT DOSE* 17GM PACKET PO SCH (09:00)
[2019-09-19] MEDS: MOM 30ML SUSPENSION UDC PO SCH (09:00)
[2019-09-19] MEDS: FOLIC ACID 1 MG TAB PO SCH (09:11)
[2019-09-19] MEDS: PANTOPRAZOLE 40MG TAB (PROTONIX) PO SCH (09:11)
[2019-09-19] MEDS: MULTIVITAMINS/MINERALS THERAP 1 TAB PO SCH (09:11)
[2019-09-19] MEDS: NICOTINE 21MG/24HR 1 EA TRANSDERMAL TD SCH (09:14)
[2019-09-19 09:18] LABS: MEAN CORPUSCULAR HEMOGLOBIN 32.3 pg (27.0-33.0); MEAN CORPUSCULAR HGB CONC 33.2 g/dl (32.0-36.5); MEAN CORPUSCULAR VOLUME 97.5 fl (80.0-96.0); PLATELET COUNT, AUTOMATED 416 10^3/uL (150-450); RED BLOOD COUNT 1.98 10^6/uL (4.30-6.10)
[2019-09-19 09:23] LABS: HEMATOCRIT 19.3 % (42.0-52.0); HEMOGLOBIN 6.4 g/dl (13.5-17.5)
[2019-09-19] MEDS: NS 1,000 ML IV SCH ×2 (09:35→13:30)
[2019-09-19 09:46] LABS: BLOOD UREA NITROGEN 15 MG/DL (7-18); CALCIUM LEVEL 7.5 MG/DL (8.8-10.2); CARBON DIOXIDE LEVEL 25 MEQ/L (21-32); CHLORIDE LEVEL 112 MEQ/L (98-107); CREATININE FOR GFR 0.79 MG/DL (0.70-1.30); GLOMERULAR FILTRATION RATE > 60.0 (>49); GLUCOSE, FASTING 152 MG/DL (70-100); POTASSIUM SERUM 4.4 MEQ/L (3.5-5.1); SODIUM LEVEL 141 MEQ/L (136-145)
--- NOTE | 2019-09-19 10:20 | REP ---
Portable chest, single AP view with the patient sitting, 09:42 a.m.: Comparison is 09/12/2019. The lung gonzalez are clear. There is a skin fold artifacts superimposed over the right upper chest. There is is an old fracture posterolaterally in the right fifth rib. Cardiac size is normal. The [place], mediastinum, skeletal structures are otherwise unremarkable. Impression: There are no acute cardiopulmonary findings. There is a right upper chest skin fold artifact. There is tubing superimposed over the upper chest. Electronically Signed by Ashish Morris MD 09/19/2019 10:12 A
[2019-09-19] MEDS ORDERED: ISOVUE-370 76% 100ML VIAL (Q9967) As Ordered ONE (10:44)
--- NOTE | 2019-09-19 10:52 | ECGEPIP ---
[facility] Test Date: 2019-09-19 Pat Name: GRACE DUNCAN Department: Room: [place] [address] Gender: Male Underwriting Technician: GILBERT : 1960 Requested By: JEANNETTE Zarate Order Number: [id number] Reading MD: Juan Carlos Laws Measurements Intervals [place] Rate: 111 P: 76 NE: 112 QRS: 51 QRSD: 94 T: 70 QT: 357 QTc: 487 Interpretive Statements sinus tachycardia with PACs and PVCs Prominent precordial voltage with strain pattern; LVH Atrial and ventricular ectopic activity new from 09/12/19 Clinical correlation advised Electronically Signed on 09-19-2019 10:51:28 EST by Juan Carlos Laws
--- NOTE | 2019-09-19 11:59 | ROOPDOC ---
[facility] Report Of Operation Report of Operation DATE OF PROCEDURE: 09/19/2019 PROCEDURE: Right femoral Central line placement under ultrasound guidance INDICATION: Hypotension in the setting of acute blood loss anemia with no IV access CONSENT: Verbal consent was obtained from patient prior to procedure however due to emergent nature and patient's critical illness unable obtain signed consent form and line placed due to emergent need. PROCEDURE NOTE: A time-out was called prior to procedure verifying patient, procedure, indication, and necessary treatment. The patient with placed in supine position for central line placement. The patient's right groin was prepped and draped in sterile fashion. 1% lidocaine was used to anesthetize the surrounding area. A 20 cm triple lumen 7 Sami catheter was introduced into the right common femoral vein using Seldinger technique under ultrasound guidance. The catheter was removed completely over the guidewire and appropriate non-pulsatile blood was returned. Each lumen of the catheter was evacuated of air and flushed with sterile saline. Catheter was sutured in place and a sterile dressing applied. The patient tolerated the procedure well with no apparent complications noted. Estimated blood loss, approximately 3 mL. RAMBO SEAMAN DO Sep 19, 2019 11:59
--- NOTE | 2019-09-19 12:58 | REP ---
CT of the chest with IV contrast, CT pulmonary angiography: There are no comparisons. The there are no emboli in the pulmonary trunk or central pulmonary arteries. There are no emboli in the pulmonary lobe or segment branches. The there is a left lower lobe pleural effusion with compression atelectasis of the adjacent lung. There is a small right lower lobe pleural effusion. There is focal discoid atelectasis in the right lower lobe. There is no mediastinal, hilar or axillary adenopathy. The thoracic aorta is unremarkable. Cardiac size is normal. The visualized upper abdomen there any fluid surrounding the liver. There is a large intrasplenic hematoma subcapsular. No pericapsular hemorrhage is identified. Impression: There are no pulmonary emboli. Next lower lobe left lower lobe infiltrate with the compression atelectasis of the lung. Small right pleural effusion. Discoid atelectasis in the right lower lobe. Large splenic subcapsular hematoma. Free fluid surrounding the spleen. Results are telephoned to the PCU, the patient is nursing floor. Electronically Signed by Ashish Morris MD 09/19/2019 12:49 P
--- NOTE | 2019-09-19 13:00 | REP ---
CT of the abdomen and pelvis with IV contrast, without bowel contrast: There are no comparisons except for a chest CT performed. Contiguous with this abdominal/pelvis CT. There is free fluid surrounding the liver. The hepatic parenchyma is homogeneous. The gallbladder and pancreas are unremarkable. There is a large subcapsular intrasplenic hematoma. There is free fluid surrounding the spleen extending inferiorly in the colic gutter and into the pelvis. The adrenals and kidneys are unremarkable except for Bosniak type 1 renal cortical cysts. The abdominal aorta is unremarkable. There is no retroperitoneal adenopathy or mass. The bowel and mesentery are unremarkable. Pelvis: The bladder is unremarkable. There is free fluid throughout the pelvis. The pelvic bowel loops are unremarkable. Impression: Large subcapsular splenic hematoma. Free fluid surrounding the spleen, liver, in the colic gutters, and into the pelvis. Results are telephoned to the PCU, the patient's nursing floor. Electronically Signed by Ashish Morris MD 09/19/2019 12:51 P
[2019-09-19] MEDS ORDERED: SODIUM CHLORIDE 0.9% INJ 10 ML SYR IV PRN (13:15)
[2019-09-19] MEDS ORDERED: PROTHROMBIN COMPLEX CONCEN IV STA (13:26)
[2019-09-19] MEDS ORDERED: DILUENT IV STA (13:26)
[2019-09-19] MEDS ORDERED: NS 1,000 ML IV SCH ×2 (13:30→14:00)
[2019-09-19] MEDS ORDERED: LIDOCAINE 1% MDV 20ML VIAL As Ordered ONE (13:55)
[2019-09-19] MEDS ORDERED: SODIUM CHLORIDE 0.9% INJ 10 ML SYR IV SCH (14:00)
[2019-09-19 14:13] LABS: INR 1.42; PROTHROMBIN TIME 17.1 SECONDS (11.8-14.0)
[2019-09-19] MEDS ORDERED: LR 1,000 ML IV ONE (14:15)
[2019-09-19] MEDS ORDERED: LIDOCAINE 1% MDV 20ML VIAL SC ONE (14:15)
[2019-09-19 14:23] LABS: ALT/SGPT 23 U/L (12-78); BILIRUBIN,TOTAL 1.3 MG/DL (0.2-1.0); BLOOD UREA NITROGEN 17 MG/DL (7-18); CALCIUM LEVEL 6.3 MG/DL (8.8-10.2); CARBON DIOXIDE LEVEL 20 MEQ/L (21-32); CHLORIDE LEVEL 117 MEQ/L (98-107); CREATININE FOR GFR 0.79 MG/DL (0.70-1.30); GLOMERULAR FILTRATION RATE > 60.0 (>49); GLUCOSE, FASTING 151 MG/DL (70-100); MAGNESIUM LEVEL 1.8 MG/DL (1.8-2.4); POTASSIUM SERUM 5.2 MEQ/L (3.5-5.1); SODIUM LEVEL 143 MEQ/L (136-145)
[2019-09-19 14:31] LABS: MEAN CORPUSCULAR HEMOGLOBIN 29.2 pg (27.0-33.0); MEAN CORPUSCULAR HGB CONC 33.5 g/dl (32.0-36.5); MEAN CORPUSCULAR VOLUME 87.1 fl (80.0-96.0); RED BLOOD COUNT 2.33 10^6/uL (4.30-6.10); WHITE BLOOD COUNT 15.4 10^3/uL (4.0-10.0)
[2019-09-19 14:34] LABS: HEMATOCRIT 20.3 % (42.0-52.0); HEMOGLOBIN 6.8 g/dl (13.5-17.5); PLATELET COUNT, AUTOMATED 284 10^3/uL (150-450)
--- NOTE | 2019-09-19 14:43 | ROOPDOC ---
[facility] Report Of Operation Report of Operation DATE OF PROCEDURE: 09/19/2019 PROCEDURE: Left Radiall Arterial Line Placement Under Ultrasound Guidance INDICATION: Hemodynamic monitoring in the setting of hemorrhagic shock CONSENT: Verbal consent obtained from patient at time of procedure. Critical illness and emergent need precluded ability to obtain signed consent. PROCEDURE NOTE: A time-out was called prior to procedure verifying patient, procedure, indication, and necessary treatment. Andrae's test was performed to ensure adequate perfusion. 1% lidocaine was used to excise a surrounding area. The patient's left wrist was prepped and draped in sterile fashion. A 20-gauge Arrow arterial line was introduced into the radial artery under ultrasound guidance. The catheter was threaded smoothly over the guidewire and the needle was removed with appropriate pulsatile blood return. The catheter was then sutured in placed and a sterile dressing was applied. The perfusion to the distal extremity was checked and adequate. The patient tolerated the procedure well with no apparent complications. Estimated blood loss less than 2 mL. RAMBO SEAMAN DO Sep 19, 2019 14:43
[2019-09-19] MEDS ORDERED: CALCIUM GLUCONATE 1,000 MG in D5W MINI-BAG PLUS 100 ML IV ONE ×2 (15:00→20:45)
[2019-09-19] MEDS ORDERED: fentaNYL 100 MCG/2 ML INJECTION (J3010) IV ONE (15:30)
[2019-09-19] MEDS ORDERED: HYDROMORPHONE HCL 0.5 MG/ 0.5 ML SYRINGE (J1170 PER 1) IV PRN ×3 (17:00→19:30)
[2019-09-19] MEDS ORDERED: MAG SULF 1GM/100ML (MAG RUN) 1 GM in IV 1 EA IV ONE (17:00)
[2019-09-19] MEDS: ONDANSETRON 4MG/2ML VIAL (J2405) IV SCH ×2 (17:01→19:41)
[2019-09-19 19:06] LABS: MEAN CORPUSCULAR HEMOGLOBIN 27.4 pg (27.0-33.0); MEAN CORPUSCULAR VOLUME 83.1 fl (80.0-96.0); PLATELET COUNT, AUTOMATED 258 10^3/uL (150-450); RED BLOOD COUNT 3.25 10^6/uL (4.30-6.10); WHITE BLOOD COUNT 15.9 10^3/uL (4.0-10.0)
[2019-09-19 19:10] LABS: HEMOGLOBIN 8.9 g/dl (13.5-17.5)
[2019-09-19 19:23] LABS: BLOOD UREA NITROGEN 23 MG/DL (7-18); CALCIUM LEVEL 6.7 MG/DL (8.8-10.2); CARBON DIOXIDE LEVEL 20 MEQ/L (21-32); CHLORIDE LEVEL 114 MEQ/L (98-107); CREATININE FOR GFR 1.07 MG/DL (0.70-1.30); GLOMERULAR FILTRATION RATE > 60.0 (>49); GLUCOSE, FASTING 193 MG/DL (70-100); MAGNESIUM LEVEL 2.4 MG/DL (1.8-2.4); SODIUM LEVEL 142 MEQ/L (136-145)
[2019-09-19] MEDS ORDERED: HYDROmorphone HCL 2 MG/ML 1ML VIAL (J1170) IV ONE (19:45)
[2019-09-19] MEDS ORDERED: LR 500 ML IV ONE (19:45)
--- NOTE | 2019-09-19 19:56 | CR.PDOC ---
General Date of Consultation: Sep 19, 2019 Referring Provider: JEANNETTE DAN MD Attending Physician: A Consultation REASON FOR CONSULTATION/CHIEF COMPLAINT: Hemorrhagic shock 08/29 HISTORY OF PRESENT ILLNESS: Patient is a 59 year old male who presented to [facility] ED on 09/12/2019 after a fall. Patient reportedly a longstanding history of alcoholism and suffered a seizure resulting in a fall. On arrival to the ED he was noted to have a comminuted intertrochanter femur fracture. At that time, there was no CT abdomen. Patient urgently when to the OR for intramedullary nailing. On 09/13/2019 he was started on DVT prophylaxis dosing of Xarelto at 10mg daily. He continued to receive Xarelto until 5pm on 09/18/2019. On the morning of 09/19/2019 am labs was significant for a hemoglobin from 9.7 to 6.8. Of note, on arrival in the ED, Hemoglobin was 13.2. Today, he became hypotensive. Start CT abdomen showed a large subcapsular hematoma with a large amount of free fluid in the abdomen and pelvis. Patient with difficulty IV access and therefore central line was emergent placed under sterile conditions. Arterial line placed. He was transferred to the ICU, given K-Centra, and rapidly transfused 2U blood without improvement in hemoglobin. Throughout the day, abdominal pain progressively worsened, abdomen with increasing distension. Patient remained tachycardiac in the 140-150s despite IV pain medications and he remained hypotensive with SBP in the 70-80s with cessation of bolus infusion of fluid. Central line was replaced with a 7F Cordis with triple lumen catheter inserted. Patient was rapidly transfused with additional blood products for a total of 7U PRBC, 2U FFP, 1Plt, and a 5pack of cyroperciptate. In addition he received 6L IVF. After decision with general surgeron it was decided to transfer to higher level of care of probable embolization and if necessary a splenectomy. ALLERGIES: Please see below. HOME MEDICATIONS: Please see below. 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 Patient initially complaining of left hip pain and patinet complaining only of back and abdominal pain ALLERGIC/IMMUNOLOGIC: . PHYSICAL EXAMINATION: VITAL SIGNS: Please see below. GENERAL APPEARANCE: Appears acutely ill, pale HEENT: Patient with chronic blindess of left eye, right pupil round and reactive RESPIRATORY: Clear to auscultation CARDIOVASCULAR: Significant tachycardia in the 150s, no lower extremity edema ABDOMEN: Firm and distended, contusion noted on left groin EXTREMITIES: Moving all four extremities, unable to sit sit NEUROLOGICAL: Intermittently lethargic, but arousable and answers questions LABORATORY DATA: Please see below. ASSESSMENT/PLAN: 1. Hemorrhagic shock 2/2 splenic hemorrhage with concurrent anticoagulation - 2/2 fall with anticoagulation (Xarelto 10mg daily) - CT Abdomen with large subcapsular hematoma with free fluid in the am - Right femoral Cordis with triple lumen catheter placement - s/p K-Centra, 7U PRBC, 2FFP, 1Plt, 1cryo - Monitor calcium, 2gram calcium given - NPO for now - Discussed with surgery - Transfer to [facility] for evaluation and probable emobolization 2. Left comminuted intertrochanter femur fracture - s/p intramedullary nail, (09/12/2019) 3. Seizures likely related to EtOH use -[facility] protocol Diet: NPO DVT/GI: Hold anticoagulation in the setting of hemorrhagic shock L/T/D: Left radial arterial line, Right femoral Cordis with triple lumen, Ram Drips: LR@150cc/hr Code Status: Full Code. Purvi Lanier [phone] is [facility] power of business attorney Dipso: Transfer to [facility] Critical Care Time: 120 minutes. Time spent immediately the bedside interpreting labs, evaluation and re-evaluating patient, discussing plan and coordinating transfer. Time spent independent of other billable procedures and other provider critical care time. Vital Signs/I&O Vital Signs Date Time Temp Pulse Resp B/P (MAP) Pulse Ox O2 Delivery O2 Flow Rate FiO2 09/19/19 13:30 130 87/56 (66) 99 Nasal Cannula 3.0 09/19/19 13:02 97.2 28 I&O- Last 24 Hours up to 6 AM 09/19/19 06:00 Intake Total 1740 ml Output Total 1050 ml Balance 690 ml Laboratory Data Labs 24H Laboratory Tests 2 09/19/19 09:06: Nucleated Red Blood Cells % (auto) 0.0, Anion Gap 4L, Glomerular Filtration Rate > 60.0, Calcium Level 7.5L 09/19/19 13:42: Anion Gap 6L, Glomerular Filtration Rate > 60.0, Calcium Level 6.3#L, Prothrombin Time 17.1H, Prothromb Time International Ratio 1.42, Activated Partial Thromboplast Time 20.0L, Lactic Acid Level 3.1*H, Magnesium Level 1.8, Total Bilirubin 1.3H, Aspartate Amino Transf (AST/SGOT) 29, Alanine Aminotransferase (ALT/SGPT) 23, Alkaline Phosphatase 50, Total Protein 4.0L, Albumin 2.0L, Albumin/Globulin Ratio 1.00 CBC/BMP Laboratory Tests 09/19/19 09:06 09/19/19 13:42 Microbiology Microbiology 09/12/19 Urine Culture - Final, Complete Streptococcus Sanguinis 09/12/19 Blood Culture - Final, Complete NO GROWTH AFTER 5 DAYS 09/12/19 Blood Culture - Final, Complete NO GROWTH AFTER 5 DAYS Allergies Coded Allergies: No Known Allergies (Unverified , 09/12/19) Home Medications Scheduled Alendronate Sodium (Fosamax) 70 Mg Tablet, 70 MG PO 1XWK, (Reported) Folic Acid (Folic Acid) 1 Mg Tablet, 1 MG PO DAILY, (Reported) Gabapentin (Gabapentin) 300 Mg Capsule, 300 MG PO DAILY, (Reported) Glycerin/Propylene Glycol (Artificial Tears Drops) 15 Ml Drops, 2 PHI OU QID, (Reported) Multivitamin (Multivitamins) 1 Each Capsule, 1 CAP PO DAILY, (Reported) Mv-Min/FA/Vit K/Lycop/Lut/Zeax (Ocuvite Eye Plus Multi Tablet) 1 Each Tablet, 1 TAB PO BID, (Reported) Pantoprazole Sodium (Protonix) 40 Mg Tablet.dr, 40 MG PO DAILY, (Reported) Rivaroxaban (Xarelto) 10 Mg Tablet, 10 MG PO DAILY for 30 Days, #30 Thiamine HCl (Thiamine HCl) 100 Mg Tablet, 100 MG PO DAILY, (Reported) Trazodone HCl (Trazodone HCl) 100 Mg Tablet, 100 MG PO QHS, (Reported) Vit A/Vit C/Vit E/Zinc/Copper (Preservision Areds Softgel) 1 Each Capsule, 1 CAP PO BID, (Reported) Vitamin B Complex (Vitamin B Complex) 1 Each Tablet, 1 TAB PO DAILY, (Reported) Scheduled PRN Acetaminophen (Acetaminophen) 500 Mg Tablet, 1,000 MG PO Q8H PRN for HEADACHE for 5 Days, #40 Tramadol HCl (Tramadol HCl) 50 Mg Tab, 50 MG PO Q12H PRN for PAIN, (Reported) Tramadol HCl (Tramadol HCl) 50 Mg Tablet, 1-2 TAB PO Q4H PRN for PAIN, #30 Miscellaneous Medications [Patient Comments] , (Reported) FAMILY MEMBERS STATE PATIENT DOES NOT TAKE HIS MEDICATIONS WITH ANY REGULARITY. THE DO NOT KNOW WHEN HE HAS TAKEN WHAT MEDICATIONS. HE GENERALLY KEEPS UP WITH HIS EYEDROPS. RAMBO SEAMAN DO Sep 19, 2019 14:35
[2019-09-19] MEDS ORDERED: CALCIUM GLUCONATE 1,000MG/10ML VIAL (100MG/ML) (J0610) As Ordered ONE (20:46)
--- NOTE | 2019-09-19 21:29 | DS.PDOC ---
Discharge Summary General Date of Admission Sep 12, 2019 at 06:31 Date of Discharge 09/19/2019 Primary Care Physician: GUERRERO ABREU [facility] Discharge Summary PROCEDURES PERFORMED DURING STAY: Left Intramedullary nailing of left femur facture, left radial arterial line, right femoral cordis/triple lumen ADMITTING DIAGNOSES: 1. Fall 2. Seizure 3. Communited Femur Fracture DISCHARGE DIAGNOSES: Hemorrhargic shock with splenic hematoma Fall Seizure Communited Femur Fracture s/p intramedullary nail EtOH use COMPLICATIONS/CHIEF COMPLAINT: Alcohol Withdrawl Seizure, Fracture Of Hip. HISTORY OF PRESENT ILLNESS/Hospital Course: Patient is a 59 year old male who presented to [facility] ED on 09/12/2019 after a fall. Patient reportedly a longstanding history of alcoholism and suffered a seizure resulting in a fall. On arrival to the ED he was noted to have a comminuted intertrochanter femur fracture. At that time, there was no CT abdomen. Patient urgently when to the OR for intramedullary nailing. On 09/13/2019 he was started on DVT prophylaxis dosing of Xarelto at 10mg daily. He continued to receive Xarelto until 5pm on 09/18/2019. On the morning of 09/19/2019 am labs was significant for a hemoglobin from 9.7 to 6.8. Of note, on arrival in the ED, Hemoglobin was 13.2. Today, he became hypotensive. Start CT abdomen showed a large subcapsular hematoma with a large amount of free fluid in the abdomen and pelvis. Patient with difficulty IV access and therefore central line was emergent placed under sterile conditions. Arterial line placed. He was transferred to the ICU, given K-Centra, and rapidly transfused 2U blood without improvement in hemoglobin. Throughout the day, abdominal pain progressively worsened, abdomen with increasing distension. Patient remained tachycardiac in the 140-150s despite IV pain medications and he remained hypotensive with SBP in the 70-80s with cessation of bolus infusion of fluid. Central line was replaced with a 7F Cordis with triple lumen catheter inserted. Patient was rapidly transfused with additional blood products for a total of 7U PRBC, 2U FFP, 1Plt, and a 5pack of cyroperciptate. In addition he received 6L IVF. After decision with general surgeron it was decided to transfer to higher level of care of probable embolization and if necessary a splenectomy. DISCHARGE MEDICATIONS: Please see below. ALLERGIES: Please see below. PHYSICAL EXAMINATION ON DISCHARGE: VITAL SIGNS: Please see below. PHYSICAL EXAMINATION: VITAL SIGNS: Please see below. GENERAL APPEARANCE: Appears acutely ill, pale HEENT: Patient with chronic blindess of left eye, right pupil round and reactive RESPIRATORY: Clear to auscultation CARDIOVASCULAR: Significant tachycardia in the 150s, no lower extremity edema ABDOMEN: Firm and distended, contusion noted on left groin EXTREMITIES: Moving all four extremities, unable to sit sit NEUROLOGICAL: Intermittently lethargic, but arousable and answers questions LABORATORY DATA: Please see below. IMAGING: Hip XRay = comminuted intertrochanter left femur fracture, repeat with successful fixatoin CT abdomen = Large subcapsular splenic hematoma with free fluid in abdomen/pelvis PROGNOSIS: Guarded ACTIVITY: Bedres DIET: NPO DISPOSITION: .Transfer to [facility] DISCHARGE INSTRUCTIONS: 1. Per [facility] DISCHARGE CONDITION: Guarded TIME SPENT ON DISCHARGE: 45 minutes specifically dedicated to transfer coordination. Vital Signs/I&Os Vital Signs Date Time Temp Pulse Resp B/P (MAP) Pulse Ox O2 Delivery O2 Flow Rate FiO2 09/19/19 19:41 24 95 Nasal Cannula 09/19/19 17:42 97.2 138 92/62 2.0 I&O- Last 24 Hours up to 6 AM 09/19/19 06:00 Intake Total 1740 ml Output Total 1050 ml Balance 690 ml Laboratory Data Labs 24H Laboratory Tests 2 09/19/19 09:06: Nucleated Red Blood Cells % (auto) 0.0, Anion Gap 4L, Glomerular Filtration Rate > 60.0, Calcium Level 7.5L 09/19/19 13:42: Anion Gap 6L, Glomerular Filtration Rate > 60.0, Calcium Level 6.3#L, Prothrombin Time 17.1H, Prothromb Time International Ratio 1.42, Activated Partial Thromboplast Time 20.0L, Lactic Acid Level 3.1*H, Magnesium Level 1.8, Total Bilirubin 1.3H, Aspartate Amino Transf (AST/SGOT) 29, Alanine Aminotransferase (ALT/SGPT) 23, Alkaline Phosphatase 50, Total Protein 4.0L, Albumin 2.0L, Albumin/Globulin Ratio 1.00 09/19/19 14:03: Nucleated Red Blood Cells % (auto) 0.0 09/19/19 18:46: Nucleated Red Blood Cells % (auto) 0.0, Anion Gap 8, Glomerular Filtration Rate > 60.0, Calcium Level 6.7L, Lactic Acid Level 4.8*H, Magnesium Level 2.4 CBC/BMP Laboratory Tests 09/19/19 09:06 09/19/19 13:42 09/19/19 14:03 09/19/19 18:46 Microbiology Microbiology 09/12/19 Urine Culture - Final, Complete Streptococcus Sanguinis 09/12/19 Blood Culture - Final, Complete NO GROWTH AFTER 5 DAYS 09/12/19 Blood Culture - Final, Complete NO GROWTH AFTER 5 DAYS Discharge Medications Scheduled Alendronate Sodium (Fosamax) 70 Mg Tablet, 70 MG PO 1XWK, (Reported) Folic Acid (Folic Acid) 1 Mg Tablet, 1 MG PO DAILY, (Reported) Gabapentin (Gabapentin) 300 Mg Capsule, 300 MG PO DAILY, (Reported) Glycerin/Propylene Glycol (Artificial Tears Drops) 15 Ml Drops, 2 PHI OU QID, (Reported) Multivitamin (Multivitamins) 1 Each Capsule, 1 CAP PO DAILY, (Reported) Mv-Min/FA/Vit K/Lycop/Lut/Zeax (Ocuvite Eye Plus Multi Tablet) 1 Each Tablet, 1 TAB PO BID, (Reported) Pantoprazole Sodium (Protonix) 40 Mg Tablet.dr, 40 MG PO DAILY, (Reported) Rivaroxaban (Xarelto) 10 Mg Tablet, 10 MG PO DAILY Thiamine HCl (Thiamine HCl) 100 Mg Tablet, 100 MG PO DAILY, (Reported) Trazodone HCl (Trazodone HCl) 100 Mg Tablet, 100 MG PO QHS, (Reported) Vit A/Vit C/Vit E/Zinc/Copper (Preservision Areds Softgel) 1 Each Capsule, 1 CAP PO BID, (Reported) Vitamin B Complex (Vitamin B Complex) 1 Each Tablet, 1 TAB PO DAILY, (Reported) Scheduled PRN Acetaminophen (Acetaminophen) 500 Mg Tablet, 1,000 MG PO Q8H PRN for HEADACHE Tramadol HCl (Tramadol HCl) 50 Mg Tab, 50 MG PO Q12H PRN for PAIN, (Reported) Tramadol HCl (Tramadol HCl) 50 Mg Tablet, 1-2 TAB PO Q4H PRN for PAIN Miscellaneous Medications [Patient Comments] , (Reported) FAMILY MEMBERS STATE PATIENT DOES NOT TAKE HIS MEDICATIONS WITH ANY REGULARITY. THE DO NOT KNOW WHEN HE HAS TAKEN WHAT MEDICATIONS. HE GENERALLY KEEPS UP WITH HIS EYEDROPS. Allergies Coded Allergies: No Known Allergies (Unverified , 09/12/19) RAMBO SEAMAN DO Sep 19, 2019 21:29
--- NOTE | 2019-09-19 22:06 | ROOPDOC ---
[facility] Report Of Operation Report of Operation DATE OF PROCEDURE: 09/19/2019 PROCEDURE: 8.5 [place] Cordis catheter with triple-lumen catheter introduced into the sheath under ultrasound guidance INDICATION: Hemorrhagic shock requiring massive transfusion CONSENT: Patient verbally consenting however due to critical illness and emergent need for mole written consent unable to be obtained PROCEDURE NOTE: A time-out was called prior to procedure verifying patient, procedure, indication, and necessary treatment. The patient with placed in supine position for central line placement. The patient's right groin and currently inserted triple-lumen catheter was prepped and draped in sterile fashion. Guidewire was threaded through the catheter however on withdrawal of the catheter guidewire inadvertently was also withdrawn from site . Manual pressure was held until hemostasis was achieved. The patient's right groin was prepped and draped in sterile fashion . A 8.5 [place] 10 cm Cordis catheter was introduced into the right common femoral vein using Seldinger technique under ultrasound guidance. The catheter was threaded smoothly over the guidewire and appropriate non- pulsatile blood was returned. A 7 [place] 20 cm triple-lumen catheter was introduced into the sheath. Each lumen of the catheter was evacuated of air and flushed with sterile saline. The Cordis and triple lumen catheters were sutured in place and a sterile dressing applied. The patient tolerated the procedure well with no apparent complications noted. Estimated blood loss, approximately 5 mL. RAMBO SEAMAN DO Sep 19, 2019 22:06
== END 2019-09-19 21:49 | disposition short-term general hospital (02) | DRG 912 ==
LOC: M ED 01:32 → M ED INP 06:31 → ENRESERV 07:32 → M MS5PR 11:15 → M PCU 09-19 11:05 → M ICU 09-19 13:24
PROVIDERS: ADMIT Internal Medicine; ATTEND Internal Medicine
PROC: 0QS706Z Reposition Left Upper Femur with Intramedullary Internal Fixation Device, Open Approach (ICD-10-PCS; principal; 2019-09-12 07:34)
PROC: 06HM33Z Insertion of Infusion Device into Right Femoral Vein, Percutaneous Approach (ICD-10-PCS; 2019-09-19)
PROC: 03HY32Z Insertion of Monitoring Device into Upper Artery, Percutaneous Approach (ICD-10-PCS; 2019-09-19)
PROC: 30233N1 Transfusion of Nonautologous Red Blood Cells into Peripheral Vein, Percutaneous Approach (ICD-10-PCS; 2019-09-19)
DX: S72.142A Displaced intertrochanteric fracture of left femur, initial encounter for closed fracture (principal); R57.8 Other shock; R56.9 Unspecified convulsions; D62 Acute posthemorrhagic anemia; S36.029A Unspecified contusion of spleen, initial encounter; F10.239 Alcohol dependence with withdrawal, unspecified; Z79.899 Other long term (current) drug therapy; J44.9 Chronic obstructive pulmonary disease, unspecified; F17.210 Nicotine dependence, cigarettes, uncomplicated; H54.62 Unqualified visual loss, left eye, normal vision right eye; W18.30XA Fall on same level, unspecified, initial encounter; Y92.009 Unspecified place in unspecified non-institutional (private) residence as the place of occurrence of the external cause; Z90.49 Acquired absence of other specified parts of digestive tract

== ENCOUNTER 2019-11-18 18:23 | Emergency (ER) | payer OTHER ==
[~2019-11-18] VITALS: Ht 182.9 cm; Wt 125.0 kg
[~2019-11-18 18:23] MED LIST changes: +ACET-683 PO; +EQL50TAB2 PO; +FOLI1TAB11 PO; +FOSA70TA PO; +GABA-843 PO; +MULTCAP PO; +OCUVTAB8 PO; +PATIENT COMMENTS; +PROT1TAB2 PO; +THIA100T7 PO; +TRAZ-257 PO; +XARE10TA PO
[2019-11-18] MEDS ORDERED: XARE10TA PO (18:53)
[2019-11-18] MEDS ORDERED: NS 500 ML IV ONE (19:30)
[2019-11-18 19:48] LABS: BASO # 0.1 10^3/uL (0.0-0.2); BASO % 0.8 % (0.0-1.0); EOS % 0.1 % (0.0-3.0); HEMATOCRIT 42.2 % (42.0-52.0); HEMOGLOBIN 14.2 g/dl (13.5-17.5); LYMPH # 1.5 10^3/uL (1.5-5.0); LYMPH % 9.8 % (24.0-44.0); MEAN CORPUSCULAR HEMOGLOBIN 29.7 pg (27.0-33.0); MEAN CORPUSCULAR HGB CONC 33.6 g/dl (32.0-36.5); MEAN CORPUSCULAR VOLUME 88.3 fl (80.0-96.0); MONO # 1.9 10^3/uL (0.0-0.8); MONO % 12.1 % (0.0-5.0); NEUTROPHILS # 11.9 10^3/uL (1.5-8.5); NEUTROPHILS % 76.8 % (36.0-66.0); PLATELET COUNT, AUTOMATED 468 10^3/uL (150-450); RED BLOOD COUNT 4.78 10^6/uL (4.30-6.10); WHITE BLOOD COUNT 15.5 10^3/uL (4.0-10.0)
[2019-11-18] MEDS ORDERED: ISOVUE-370 76% 100ML VIAL As Ordered ONE (20:21)
[2019-11-18 20:51] LABS: ALBUMIN 3.3 GM/DL (3.2-5.2); ALT/SGPT 17 U/L (12-78); BILIRUBIN,DIRECT 0.2 MG/DL (0.0-0.2); BILIRUBIN,TOTAL 0.5 MG/DL (0.2-1.0); ETHYL ALCOHOL (ETHANOL) < 0.003 % (0.000-0.010); LIPASE 79 U/L (73-393); TOTAL PROTEIN 6.5 GM/DL (6.4-8.2)
--- NOTE | 2019-11-18 21:09 | REPVR ---
PROCEDURE INFORMATION: Exam: CT Abdomen And Pelvis With Contrast Exam date and time: 11/18/2019 8:29 PM Age: 59 years old Clinical indication: Abdominal pain; Generalized; Prior surgery; Surgery date: 1-6 months; Surgery type: Splenectomy; Additional info: Abdominal pain S/P splenectomy TECHNIQUE: Imaging protocol: Computed tomography of the abdomen and pelvis with intravenous contrast. Radiation optimization: All CT scans at this facility use at least one of these dose optimization techniques: automated exposure control; mA and/or kV adjustment per patient size (includes targeted exams where dose is matched to clinical indication); or iterative reconstruction. Contrast material: ISOVUE 370; Contrast volume: 100 ml; Contrast route: IV; COMPARISON: CT ABD/PEL W/IV CONTRAST ONLY 09/19/2019 11:50 AM FINDINGS: Liver: Normal. No mass. Gallbladder and bile ducts: Normal. No calcified stones. No ductal dilation. Pancreas: Normal. No ductal dilation. Spleen: Prior splenectomy. Adrenals: Normal. No mass. Kidneys and ureters: Small cyst in the right kidney. Kidneys are otherwise unremarkable. No hydronephrosis. Stomach and bowel: Mild intraluminal fluid and mucosal enhancement are noted in the small bowel. No wall thickening or other inflammatory changes. No bowel obstruction. The stomach is unremarkable. There is colonic diverticulosis without evidence of diverticulitis. Appendix: No evidence of appendicitis. Intraperitoneal space: Unremarkable. No free air. No significant fluid collection. Vasculature: Advanced aortoiliac atherosclerotic disease. No aneurysm. Lymph nodes: Unremarkable. No enlarged lymph nodes. Bladder: Mild urinary bladder wall thickening suggesting cystitis. No bladder masses or calculi. Reproductive: Unremarkable as visualized. Bones/joints: There are advanced degenerative changes in the spine and pelvis. Prior left hip ORIF. Fracture of the proximal left femur remains nonunited. Old T12 compression fracture. Soft tissues: Unremarkable. IMPRESSION: 1. Mild mucosal enhancement and intraluminal fluid in the small bowel is nonspecific but may indicate a viral enteritis. No obstruction. 2. Urinary bladder wall thickening suggesting cystitis. 3. Colonic diverticulosis without evidence of diverticulitis. 4. Prior splenectomy. Electronically signed by: Santino Disla On 11/18/2019 21:09:05 PM
[2019-11-18 21:30] VITALS: BP 152/86
[2019-11-18] MEDS ORDERED: BACT800T5 PO (21:49)
[2019-11-18] MEDS ORDERED: BACTRIM 160MG/800MG DS TAB PO ONE (22:00)
== END 2019-11-18 22:24 | disposition home or self-care (01) ==
LOC: M ED 18:23 → EDBD 18:23 → M ED 22:24
DX: L03.311 Cellulitis of abdominal wall (principal); K21.9 Gastro-esophageal reflux disease without esophagitis; F10.10 Alcohol abuse, uncomplicated; J44.9 Chronic obstructive pulmonary disease, unspecified; F41.9 Anxiety disorder, unspecified; F32.9 Major depressive disorder, single episode, unspecified; Z87.81 Personal history of (healed) traumatic fracture; F17.210 Nicotine dependence, cigarettes, uncomplicated; Z79.899 Other long term (current) drug therapy; Z79.01 Long term (current) use of anticoagulants
CPT/HCPCS: 74177; 80047; 80076; 83605; 83690; 85025; 87040; 93041; 96365; 99285; G0480; Q9967

== ENCOUNTER 2019-11-28 22:29 | Emergency (ER) | payer OTHER ==
[~2019-11-28] VITALS: Ht 172.7 cm; Wt 57.0 kg
[~2019-11-28 22:29] MED LIST changes: +BACT800T5 PO; +GABA-282 PO; -GABA-843 PO
[2019-11-28] MEDS ORDERED: diphenhydrAMINE 50MG/ML VIAL (J1200) IV STA (22:46)
[2019-11-28] MEDS ORDERED: methylPREDNISolone 125MG 2ML VIAL IV ONE (23:00)
[2019-11-28] MEDS ORDERED: FAMOTIDINE INJ 20MG/2ML VIAL (S0028 PER 1) IVP ONE (23:00)
[2019-11-28 23:14] LABS: HEMATOCRIT 42.6 % (42.0-52.0); HEMOGLOBIN 14.8 g/dl (13.5-17.5); MEAN CORPUSCULAR HGB CONC 34.7 g/dl (32.0-36.5); MEAN CORPUSCULAR VOLUME 86.2 fl (80.0-96.0); PLATELET COUNT, AUTOMATED 510 10^3/uL (150-450); RED BLOOD COUNT 4.94 10^6/uL (4.30-6.10); WHITE BLOOD COUNT 6.9 10^3/uL (4.0-10.0)
[2019-11-28 23:42] LABS: BLOOD UREA NITROGEN 7 MG/DL (7-18); CALCIUM LEVEL 8.4 MG/DL (8.8-10.2); CARBON DIOXIDE LEVEL 27 MEQ/L (21-32); CHLORIDE LEVEL 91 MEQ/L (98-107); CREATININE FOR GFR 0.74 MG/DL (0.70-1.30); GLOMERULAR FILTRATION RATE > 60.0 (>49); GLUCOSE, FASTING 98 MG/DL (70-100); POTASSIUM SERUM 4.1 MEQ/L (3.5-5.1); SODIUM LEVEL 128 MEQ/L (136-145)
[2019-11-29] MEDS ORDERED: PRED20TA PO (00:38)
[2019-11-29 00:45] VITALS: BP 110/63
== END 2019-11-29 01:07 | disposition home or self-care (01) ==
LOC: M ED 22:29 → EDUNIT# 22:29 → EDBD 22:29 → M ED 11-29 01:07
DX: R21 Rash and other nonspecific skin eruption (principal); I51.9 Heart disease, unspecified; K21.9 Gastro-esophageal reflux disease without esophagitis; F10.10 Alcohol abuse, uncomplicated; F17.210 Nicotine dependence, cigarettes, uncomplicated; Z88.2 Allergy status to sulfonamides; Z79.899 Other long term (current) drug therapy
CPT/HCPCS: 80048; 85027; 96374; 96375; 99284; J1200; J2930

== ENCOUNTER 2019-11-30 18:17 | Inpatient (IN) | payer OTHER ==
[~2019-11-30] VITALS: Ht 167.6 cm; Wt 55.8 kg
[~2019-11-30 18:17] MED LIST changes: -GABA-282 PO; +GABA-843 PO; +PRED20TA PO
[2019-11-30] MEDS ORDERED: NS 500 ML IV ONE (19:15)
[2019-11-30 19:25] LABS: BASO % 0.1 % (0.0-1.0); HEMATOCRIT 43.3 % (42.0-52.0); HEMOGLOBIN 15.4 g/dl (13.5-17.5); LYMPH # 0.3 10^3/uL (1.5-5.0); LYMPH % 3.1 % (24.0-44.0); MEAN CORPUSCULAR HEMOGLOBIN 30.9 pg (27.0-33.0); MEAN CORPUSCULAR HGB CONC 35.6 g/dl (32.0-36.5); MEAN CORPUSCULAR VOLUME 86.8 fl (80.0-96.0); MONO # 0.4 10^3/uL (0.0-0.8); MONO % 4.2 % (0.0-5.0); NEUTROPHILS # 9.2 10^3/uL (1.5-8.5); PLATELET COUNT, AUTOMATED 529 10^3/uL (150-450); RED BLOOD COUNT 4.99 10^6/uL (4.30-6.10)
[2019-11-30 19:38] LABS: INR 1.05; PROTHROMBIN TIME 13.4 SECONDS (11.8-14.0)
[2019-11-30 19:39] LABS: PARTIAL THROMBOPLASTIN TIME 32.4 SECONDS (25.0-38.4)
[2019-11-30] MEDS ORDERED: ISOVUE-370 76% 100ML VIAL As Ordered ONE (20:41)
[2019-11-30 20:59] LABS: ALBUMIN 3.6 GM/DL (3.2-5.2); ALT/SGPT 53 U/L (12-78); AMYLASE 38 U/L (25-115); BILIRUBIN,DIRECT 0.1 MG/DL (0.0-0.2); BILIRUBIN,TOTAL 0.2 MG/DL (0.2-1.0); BLOOD UREA NITROGEN 9 MG/DL (7-18); CALCIUM LEVEL 8.8 MG/DL (8.8-10.2); CARBON DIOXIDE LEVEL 25 MEQ/L (21-32); CHLORIDE LEVEL 94 MEQ/L (98-107); CK-MB VALUE MASS 1.5 NG/ML (<3.6); CPK CREATINE PHOSPHOKINASE 38 U/L (39-308); CREATININE FOR GFR 0.56 MG/DL (0.70-1.30); GLOMERULAR FILTRATION RATE > 60.0 (>49); GLUCOSE, FASTING 119 MG/DL (70-100); LIPASE 95 U/L (73-393); MB/CK RELATIVE INDEX 3.95 (< OR =4); POTASSIUM SERUM 4.5 MEQ/L (3.5-5.1); SODIUM LEVEL 127 MEQ/L (136-145); TOTAL PROTEIN 7.2 GM/DL (6.4-8.2); TROPONIN I < 0.02 NG/ML (< 0.10)
[2019-11-30] MEDS ORDERED: THIAMINE 100 MG TAB PO SCH (21:00)
[2019-11-30 21:12] LABS: ETHYL ALCOHOL (ETHANOL) < 0.003 % (0.000-0.010)
--- NOTE | 2019-11-30 21:44 | REPVR ---
PROCEDURE INFORMATION: Exam: CT Abdomen And Pelvis With Contrast Exam date and time: 11/30/2019 9:03 PM Age: 59 years old Clinical indication: Abdominal pain; Additional info: Abdominal and chest pain, postop splenectomy TECHNIQUE: Imaging protocol: Computed tomography of the abdomen and pelvis with intravenous contrast. Radiation optimization: All CT scans at this facility use at least one of these dose optimization techniques: automated exposure control; mA and/or kV adjustment per patient size (includes targeted exams where dose is matched to clinical indication); or iterative reconstruction. Contrast material: ISO 370; Contrast volume: 100 ml; Contrast route: IV; COMPARISON: CT ABD/PEL W/IV CONTRAST ONLY 11/18/2019 8:26 PM FINDINGS: Heart: Refer to the CTA chest report on 11/30/2019 for details. Lungs: Refer to the CTA chest report on 11/30/2019 for details. Liver: Unremarkable. No liver lesion is identified. The contour of the liver is smooth. No hepatomegaly is noted. Gallbladder and bile ducts: The gallbladder is contracted. No calcified gallstones are seen. No dilation of the bile ducts is noted. No calcified stones are seen in the common bile duct. Pancreas: Normal. No dilation of the main pancreatic duct is noted. There is no inflammatory fat stranding around the pancreas to suggest acute pancreatitis. Spleen: The spleen has been removed. There are 2 small splenial is a in the splenic bed. No fluid collection is noted in the operative bed. Adrenals: Normal. No mass. Kidneys and ureters: There is a 2 cm benign-appearing cyst in the inferior pole of the right kidney and a 1 cm benign-appearing cyst in the superior pole of the left kidney, which are stable compared to the prior CT abdomen and pelvis on 11/18/2019 and for which follow-up is not necessary. No stones are noted in the kidneys or ureters. There is no hydronephrosis or hydroureter. There are no wedge-shaped areas of low attenuation in the kidneys to suggest pyelonephritis. There is no renal abscess or perinephric fluid collection. Stomach and bowel: There is thickening of the wall of the stomach, which may be secondary to its decompressed state versus gastritis. The small bowel is unremarkable. There is sigmoid diverticulosis without evidence for diverticulitis. There is no evidence for a bowel obstruction, pneumatosis intestinalis, intussusception, volvulus, or perforated viscus. The descending colon and sigmoid colon are decompressed, limiting their optimal evaluation. There is no pericolonic inflammatory fat stranding. Appendix: There are no findings to suggest acute appendicitis. Intraperitoneal space: No free air. No ascites. No asbcess. Retroperitoneal space: No fluid collection. No mass. Vasculature: The abdominal aorta is patent, normal in caliber, and there is no dissection. The iliac arteries, common femoral arteries, renal arteries, celiac artery, superior mesenteric artery, and inferior mesenteric artery are patent. There are extensive atherosclerotic calcifications. There are two left renal veins, one of which has a retroaortic course. The renal veins are patent. Lymph nodes: No enlarged lymph nodes. Bladder: There is thickening of the wall of the partially distended urinary bladder. No calculi are noted in the bladder. Reproductive: The prostate gland and seminal vesicles are unremarkable. 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 The fracture is stable compared to the prior CT abdomen and pelvis on 11/18/2019. There is a chronic severe anterior wedge compression fracture of T12 with retropulsion of the superior endplate of T12 by 3 mm into the spinal canal, but without any significant spinal canal stenosis at the level of the retropulsion, which are similar findings compared to the prior CT abdomen and pelvis on 11/18/2019. No acute fracture is noted. The bones have a demineralized appearance. There are degenerative changes in the lumbar spine, most severe at the L5-S1 level. There are several old healed left rib fractures and an old healed fracture of the right lateral 8th rib. Soft tissues: There is a simple linear intersphincteric perianal fistula, which originates from approximately the 7 o'clock position of the anus and courses along the right side of the gluteal cleft (images 145-149 of the axial series 501). There is a midline vertical incision scar in the anterior abdominal wall. No hernia or soft tissue fluid collection is noted. There is a 16 mm focal region of high density skin thickening in the right gluteal region, which is unchanged compared to the prior CT abdomen and pelvis on 11/18/2019. IMPRESSION: 1. Thickening of the wall of the urinary bladder, which may be secondary to its partially distended state, bladder wall hypertrophy, or cystitis. Correlation with urinalysis is suggested. 2. Simple linear intersphincteric perianal fistula, which originates from approximately the 7 o'clock position of the anus and courses along the right side of the gluteal cleft. 3. Thickening of the wall of the stomach, which may be secondary to its decompressed state versus gastritis. 4. Sigmoid diverticulosis without evidence for diverticulitis. Electronically signed by: Luiz Abdullahi On 11/30/2019 21:44:29 PM
--- NOTE | 2019-11-30 21:45 | REPVR ---
PROCEDURE INFORMATION: Exam: CT Angiography Chest With Contrast Exam date and time: 11/30/2019 9:03 PM Age: 59 years old Clinical indication: Chest pain; Additional info: Abdominal and chest pain, postop splenectomy TECHNIQUE: Imaging protocol: Computed tomographic angiography of the chest with intravenous contrast. 3D rendering: MIP and/or 3D reconstructed images were created by the technologist. Radiation optimization: All CT scans at this facility use at least one of these dose optimization techniques: automated exposure control; mA and/or kV adjustment per patient size (includes targeted exams where dose is matched to clinical indication); or iterative reconstruction. Contrast material: ISO 370; Contrast volume: 100 ml; Contrast route: IV; COMPARISON: CT ANGIO CHEST 09/19/2019 11:50 AM FINDINGS: Pulmonary arteries: No pulmonary embolism. Great vessels off aortic arch: The brachiocephalic artery, imaged proximal portion of the left common carotid artery, and left subclavian artery are intact. No stenosis or occlusion of these vessels is noted. Incidental note is made that the left vertebral artery arises directly from the aortic arch between the origin of the left common carotid artery and left subclavian artery. Aorta: The thoracic aorta is intact and patent. There is no thoracic aortic aneurysm, pseudoaneurysm, penetrating atherosclerotic ulcer, intramural hematoma, or dissection. There are mild atherosclerotic calcifications. Thyroid: Unremarkable. Tracheobronchial tree: Intact and patent. Lungs: There are centrilobular emphysematous changes, predominantly in the upper lobes, which are similar in appearance compared to the prior CT on 09/19/2019. There is mild dependent atelectasis in both lower lobes. No lung consolidation or mass is noted. Pleural space: Normal. No pneumothorax or pleural effusion. Heart: No cardiomegaly or pericardial effusion. The ratio of the diameter of the right ventricle to the diameter of the left ventricle measures less than 1, which is within normal limits and there is no evidence for a right ventricular strain. There are coronary artery calcifications. Mediastinum: No mediastinal mass, fluid collection, or pneumomediastinum. Lymph nodes: There are subcentimeter mediastinal lymph nodes. However, no abnormally enlarged lymph nodes measuring greater than 1 cm in short axis are noted. Diaphragm: Intact. Bones/joints: There are multiple old healed left rib fractures involving the left 3rd, 4th, 5th, 6th, 7th, 8th, 9th, and 10th ribs. There is also an old healed fracture of the right lateral 8th rib. There is a chronic moderate anterior wedge compression fracture of C7, a chronic mild anterior wedge compression fracture of T3, a chronic moderate anterior wedge compression fracture of T4, a chronic mild anterior wedge compression fracture of T5, a chronic severe anterior wedge compression fracture of T6, a chronic mild anterior wedge compression fracture of T7, a chronic mild anterior wedge compression fracture of T8, a chronic severe anterior wedge compression fracture of T9, and a chronic severe anterior wedge compression fracture of T12, which are similar in appearance compared to the prior CT on 09/19/2019. There is retropulsion of the superior endplate of T12 by 3 mm into the spinal canal, but without any significant spinal canal stenosis at the level of the retropulsion. There is also buckling of the posterior superior cortex of T9 into the spinal canal, but without any spinal canal stenosis at the level of the retropulsion. The bones have a demineralized appearance. No suspicious osteolytic or osteoblastic lesion is noted. Soft tissues: There is mild bilateral gynecomastia, which is similar in appearance compared to the prior CT on 09/19/2019. Other findings: Refer to the CT abdomen and pelvis report on 11/30/2019 for details regarding the abdominal and pelvic findings. IMPRESSION: 1. No acute findings in the chest. No pulmonary embolism. 2. Chronic compression fractures of C7, T3, T4, T5, T6, T7, T8, T9, and T11, which are similar in appearance compared to the prior CTA chest on 09/19/2019. 3. Chronic healed fracture deformities involving the right lateral 8th rib and left 3rd through 10th ribs. 4. Centrilobular emphysematous changes, which are similar in appearance compared to the prior CTA chest on 09/19/2019. Electronically signed by: Luiz Abdullahi On 11/30/2019 21:44:40 PM
[2019-11-30] MEDS ORDERED: LORazepam 2 MG/ML VIAL (J2060) IV STA (21:56)
[2019-11-30] MEDS ORDERED: LORazepam 2 MG/ML VIAL (J2060) As Ordered ONE (22:03)
[2019-11-30] MEDS ORDERED: LORazepam 2 MG TAB PO PRN (23:00)
[2019-11-30] MEDS ORDERED: MAALOX 30 ML SUSP *UDC PO PRN (23:00)
[2019-11-30] MEDS ORDERED: PINK BISMUTH SUSP 524MG/30ML ORAL SYRINGE PO PRN (23:00)
[2019-11-30] MEDS ORDERED: ONDANSETRON 4MG/2ML VIAL IV PRN (23:00)
[2019-11-30] MEDS ORDERED: NS 1,000 ML IV ONE (23:00)
--- NOTE | 2019-11-30 23:04 | HPEPDOC ---
[facility] Medical History & Physical Date of Admission November 30, 2019 Date of Service: November 30, 2019 Primary Care Physician: BRIAN ESPINOZA DO Attending Physician: THEA CONNOR MD History and Physical TIME OF SERVICE: 11:55 PM CHIEF COMPLAINT: Abdominal pain HISTORY OF PRESENT ILLNESS: This is a 59-year-old gentleman who presented with complaints of sharp, 9 out of 10 in severity, mid abdominal pain that began on Friday; the pain was so severe that he drink less alcohol than he usually does. At his baseline he drinks 4 beers a day but today he only drank half a can. He is also complaining of chest pain, and left lower extremity pain. He denied having nausea, vomiting, fever or chills. The history was corroborated by his [id number] Shala who can be reached at [phone]. REVIEW OF SYSTEMS: 12 point review of systems negative except as listed in HPI PAST MEDICAL/ SURGICAL HISTORY: Emphysema Pulmonary hypertension with PSAP 49 Osteoporosis with history of C7, T3 T4, T5, T6, T7, T8, T9 and, T11 compression fractures Old left third, fourth, fifth, sixth, seventh, eighth, ninth and 11th rib fractures Old right eighth rib fracture History of DTs when he doesn't drink. Splenic hematoma 09/19/19 Left intertrochanteric fracture, status post left intramedullary nail. 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 HOME MEDICATIONS: Please see below. PHYSICAL EXAMINATION: Vital Signs Date Time Temp Pulse Resp B/P (MAP) Pulse Ox O2 Delivery O2 Flow Rate FiO2 11/30/19 18:30 138/80 (99) 11/30/19 18:32 106 99 11/30/19 18:36 98.1 16 Room Air GEN: Slim build/ NAD INTEGUMENT: not flushed/ not jaundice / he has recent post laparoscopy scars at the mid abomen, there is no discharge HEENT: NCAT / mucus membranes dry CVS: RRR/NMRG/ no lower extremity edema LUNGS: lungs are clear to auscultation bilaterally on room air ABDOMEN: Contour ( scaphoid) / soft & he grimaces with palpation MSK/EXTREMITIES: range of motion intact in all 4 extremities NEURO: Is not tumultuous PSYCH: alert and oriented / able to understand and follow commands LABORATORY DATA: 11/30/19 20:22 Immature Granulocyte % (Auto) 0.6, Neutrophils (%) (Auto) 92.0H, Lymphocytes (%) (Auto) 3.1L, Monocytes (%) (Auto) 4.2, Eosinophils (%) (Auto) 0.0, Basophils (%) (Auto) 0.1, Neutrophils # (Auto) 9.2H, Lymphocytes # (Auto) 0.3L, Monocytes # (Auto) 0.4, Eosinophils # (Auto) 0.0, Basophils # (Auto) 0.0, Nucleated Red B lood Cells % (auto) 0.0, Prothrombin Time 13.4, Prothromb Time International Ratio 1.05, Activated Partial Thromboplast Time 32.4 11/30/19 20:22: Anion Gap 8, Glomerular Filtration Rate > 60.0, Lactic Acid Level 1.5, Calcium Level 8.8, Total Bilirubin 0.2, Direct Bilirubin 0.1, Aspartate Amino Transf (AST/SGOT) 57H, Alanine Aminotransferase (ALT/SGPT) 53, Alkaline Phosphatase 156H, Total Creatine Kinase 38L, Creatine Kinase MB 1.5, Creatine Kinase MB Relative Index 3.95, Troponin I < 0.02, Total Protein 7.2, Albumin 3.6, Albumin/Globulin Ratio 1.00, Amylase Level 38, Lipase 95, Ethyl Alcohol Level < 0.003 11/30/19 20:29: POC Glucose (Misc Panel) 128H, POC Sodium (Misc Panel) 127L, POC Potassium (Misc Panel) 4.2, POC Chloride (Misc Panel) 92L, POC Total CO2 (Misc Panel) 23.0, POC Blood Urea Nitrogen (Misc Panel 8, POC Ionized Calcium (Misc Panel) 4.3L, POC Creatinine (Misc Panel) 0.5L, POC Hematocrit (Misc Panel) 48.0 11/30/19 20:53: Urine Color YELLOW, Urine Appearance HAZY, Urine pH 7.0, Urine Specific [place] 1.014, Urine Protein NEGATIVE, Urine Glucose (UA) NEGATIVE, Urine Ketones TR ACEH, Urine Blood NEGATIVE, Urine Nitrite NEGATIVE, Urine Bilirubin NEGATIVE, Urine Urobilinogen 2.0H, Urine Leukocyte Esterase NEGATIVE, Urine WBC (Auto) 1, Urine RBC (Auto) 3, Urine Hyaline Casts (Auto) 0, Urine Bacteria (Auto) NEGATIVE, Urine Squamous Epithelial Cells 2, Urine Amorphous Sediment SMALLH, Urine Mucus (Auto) SMALL, Urine Sperm (Auto) IMAGING: CTA chest "IMPRESSION: 1. No acute findings in the chest. No pulmonary embolism. 2. Chronic compression fractures of C7, T3, T4, T5, T6, T7, T8, T9, and T11, which are similar in appearance compared to the prior CTA chest on 09/19/2019. 3. Chronic healed fracture deformities involving the right lateral 8th rib and left 3rd through 10th ribs. 4. Centrilobular emphysematous changes, which are similar in appearance compared to the prior CTA chest on 09/19/2019." CT abdomen and pelvis with contrast "IMPRESSION: 1. Thickening of the wall of the urinary bladder, which may be secondary to its partially distended state, bladder wall hypertrophy, or cystitis. Correlation with urinalysis is suggested. 2. Simple linear intersphincteric perianal fistula, which originates from approximately the 7 o'clock position of the anus and courses along the right side of the gluteal cleft. 3. Thickening of the wall of the stomach, which may be secondary to its decompressed state versus gastritis. 4. Sigmoid iverticulosis without evidence for diverticulitis. " MICROBIOLOGY: 11/30/19 Blood Culture, Received Pending 11/30/19 Blood Culture, Received Pending ASSESSMENT: is a 59 yr old M w a PMH of Emphysema, Pulmonary hypertension, COPD, osteoprosis, DTs when he doesn't drink, and left eye blindness is admitted for evaluation of abdominal and chest pain and alcohol w/d. PLAN: 1. Abdominal / chest pain possibly gastritis Plan: admit to medical floor /telemetry /trend trops / peptobismol 2. Alcohol withdrawal Plan: Fall precautions/seizure precautions/Ativan per CIWA protocol/thiamine & folic acid 3. Hyponatremia likely 2/2 Potomania No need to urgently correct. Plan: monitor Is and Os / f/u serum osmol, Uosmol and Brian / IVF 4. Transaminitis Plan: trend LFTs & f/u Hep panel 5.Unsteady Gait / Debility Plan: Pt eval for early mobilization 6. Tobacco Abuse Plan: smoking cessation education 7. Osteoporosis By definition with multiple vertebral fx he has osteo Plan: asked his daughter in law to f/u with his PCP to start antiresorptive therapy 8. Chronic Xarelto Tx The patient's family is not sure why he take this med Plan: The daytime team can f/u with the patient's PCP to determine on why he on this medication DVT PROPHYLAXIS: SCDs DISPOSITION: likely home after more than 2 midnight's stay LATE ENTRY #Abdominal/Chest pain likely 2/2 Gastritis Bc his Hg has dropped I suspect he may have an UGIB Plan: NPO w IVF / Gen Surg consult for possible EGD () / trend Hg , f/u iron panel / PPI, octreotide, Rocephin Vital Signs - Home Medications Scheduled Alendronate Sodium (Fosamax) 70 Mg Tablet, 70 MG PO 1XWK ES Ciprofloxacin (Ciloxan) 3.5 Gm Oint...g., 1 APPLIC TOP QHS APPLY A THIN LAYER IN EACH EYE AT BEDTIME DIRECTED Gabapentin (Gabapentin) 300 Mg Capsule, 300 MG PO QHS Glycerin/Propylene Glycol (Artificial Tears Drops) 15 Ml Drops, 2 DROP OU QID Metoprolol Tartrate (Metoprolol Tartrate) 25 Mg Tablet, 37.5 MG PO BID Multivitamin (Multivitamins) 1 Each Capsule, 1 CAP PO DAILY Mv-Min/FA/Vit K/Lycop/Lut/Zeax (Ocuvite Eye Plus Multi Tablet) 1 Each Tablet, 1 TAB PO BID Prednisone (Prednisone) 20 Mg Tablet, 40 MG PO DAILY Trazodone HCl (Trazodone HCl) 150 Mg Tablet, 150 MG PO QHS Trazodone HCl (Trazodone HCl) 150 Mg Tablet, 150 MG PO QHS Umeclidinium De Gra[place] (Incruse Ellipta) 62.5 Mcg Blst.w.dev, 1 PUFF INH DAILY Scheduled PRN Acetaminophen (Acetaminophen) 500 Mg Tablet, 1,000 MG PO Q8H PRN for HEADACHE Albuterol Sulfate (Ventolin Hfa) 18 Gm Hfa.aer.ad, 2 PUFFS INH QID PRN for SOB/WHEEZING Lactulose (Lactulose) 10 Gm/15 Ml Solution, 15 ML PO DAILY PRN for CONSTIPATION Allergies Coded Allergies: sulfamethoxazole (Verified Allergy, Intermediate, RASH AND ITCHING ALL OVER BODY, 12/01/19) A-FIB/CHADSVASC A-FIB History Current/History of A-Fib/PAF?: No Current PO Anticoag Therapy: No THEA CONNOR MD November 30, 2019 23:04
[2019-11-30 23:45] LABS: OSMOLALITY SERUM 259 MOSM/KG (275-295)
[2019-12-01] VITALS (8 sets, daily range): BP systolic 114–141; BP diastolic 67–92
[2019-12-01] MEDS ORDERED: COMMENTS (01:25)
[2019-12-01] MEDS: DOCUSATE SODIUM 100 MG CAP PO SCH ×3 (01:42→21:15)
[2019-12-01 03:25] LABS: HEMATOCRIT 37.5 % (42.0-52.0); MEAN CORPUSCULAR HEMOGLOBIN 30.1 pg (27.0-33.0); MEAN CORPUSCULAR HGB CONC 34.9 g/dl (32.0-36.5); MEAN CORPUSCULAR VOLUME 86.2 fl (80.0-96.0); PLATELET COUNT, AUTOMATED 489 10^3/uL (150-450); RED BLOOD COUNT 4.35 10^6/uL (4.30-6.10); WHITE BLOOD COUNT 4.8 10^3/uL (4.0-10.0)
[2019-12-01 03:33] LABS: HEMOGLOBIN 13.1 g/dl (13.5-17.5)
[2019-12-01 04:01] LABS: ALT/SGPT 45 U/L (12-78); BILIRUBIN,TOTAL 0.2 MG/DL (0.2-1.0); BLOOD UREA NITROGEN 8 MG/DL (7-18); CALCIUM LEVEL 8.1 MG/DL (8.8-10.2); CARBON DIOXIDE LEVEL 23 MEQ/L (21-32); CHLORIDE LEVEL 99 MEQ/L (98-107); CREATININE FOR GFR 0.49 MG/DL (0.70-1.30); GLOMERULAR FILTRATION RATE > 60.0 (>49); GLUCOSE, FASTING 93 MG/DL (70-100); POTASSIUM SERUM 4.2 MEQ/L (3.5-5.1); SODIUM LEVEL 130 MEQ/L (136-145)
[2019-12-01 04:02] LABS: ALBUMIN 3.1 GM/DL (3.2-5.2)
[2019-12-01] MEDS ORDERED: OCTREOTIDE ACETATE 100MCG/ML VIAL (J2354 PER 25MCG) IV ONE (06:15)
[2019-12-01] MEDS ORDERED: LORazepam 2 MG/ML VIAL (J2060) IV PRN (06:15)
[2019-12-01] MEDS: NS 1,000 ML IV SCH ×2 (06:56→21:22)
[2019-12-01] MEDS ORDERED: VENTAER INH (06:58)
[2019-12-01] MEDS ORDERED: CIPR3OPO TOP (06:58)
[2019-12-01] MEDS ORDERED: PRED20TA PO (06:58)
[2019-12-01] MEDS ORDERED: TRAZ150T90 PO (06:58)
[2019-12-01] MEDS ORDERED: INCR1INH INH (06:58)
[2019-12-01] MEDS ORDERED: ACET-683 PO (06:58)
[2019-12-01] MEDS ORDERED: METO1TAB87 PO (06:58)
[2019-12-01] MEDS ORDERED: LACT10SO3 PO (06:58)
[2019-12-01] MEDS ORDERED: TRAZ1TAB14 PO (06:58)
[2019-12-01] MEDS ORDERED: cefTRIAXone SOD 1 GM in D5W MINI-BAG PLUS 50 ML IV SCH (08:00)
[2019-12-01] MEDS: SUCRALFATE 1 GM TAB PO SCH ×4 (08:15→21:15)
[2019-12-01] MEDS ORDERED: FOLIC ACID 1 MG TAB PO SCH (09:00)
[2019-12-01] MEDS ORDERED: THIAMINE 200MG/2ML VIAL (J3411 PER 100MG) IM SCH (09:00)
[2019-12-01] MEDS ORDERED: MULTIVITAMINS/MINERALS THERAP 1 TAB PO SCH (09:00)
[2019-12-01] MEDS ORDERED: PANTOPRAZOLE 40MG VIAL (C9113 PER 1) IV SCH (09:00)
--- NOTE | 2019-12-01 09:01 | ECGEPIP ---
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
[2019-12-01] MEDS: FOLIC ACID 1 MG in NS 50 ML IV SCH (09:20)
[2019-12-01 09:24] LABS: FERRITIN 634 NG/ML (26-388); IRON (FE) 112 UG/DL (65-175); PERCENT SATURATION 62.6 % (19.7-50.0); TOTAL IRON BINDING CAPACITY 179 UG/DL (250-450)
[2019-12-01] MEDS: OCTREOTIDE ACETATE 1,200 MCG in NS 238.8 ML IV SCH (09:57)
[2019-12-01 10:11] LABS: HEPATITIS B SURFACE ANTIGEN NEGATIVE (NEGATIVE)
[2019-12-01 10:38] LABS: HEPATITIS C VIRUS ABY INDEX 0.1 INDEX (<0.8)
[2019-12-01 10:40] LABS: HEPATITIS B CORE ANTIBODY IGM NEGATIVE (NEGATIVE)
[2019-12-01 10:41] LABS: HEPATITIS A ANTIBODY IGM NEGATIVE (NEGATIVE)
[2019-12-01] MEDS: NICOTINE 21MG/24HR 1 EA TRANSDERMAL TD SCH (11:49)
--- NOTE | 2019-12-01 20:05 | IPNPDOC ---
Date Seen The patient was seen on 12/01/19. Progress Note SUBJECTIVE: Resolved abdominal pain, resolved chest pain. W/u neg thus far, no bleeding. Started on diet. Examined patient's skin and looks like rash is macular and adverse effect from drug used recently-improving. Denies n/v/d. OBJECTIVE: VITAL SIGNS: Please see below GEN: Slim build/ NAD INTEGUMENT: not flushed/ not jaundice / he has recent post laparoscopy scars at the mid abomen, there is no discharge. Rash on all extremities, macular but no papular- in different stages of healing - patient states this has improved from how it looked previously HEENT: NCAT / mucus membranes dry CVS: RRR/NMRG/ no lower extremity edema LUNGS: lungs are clear to auscultation bilaterally on room air ABDOMEN: Contour ( scaphoid) / soft & he grimaces with palpation MSK/EXTREMITIES: range of motion intact in all 4 extremities NEURO: CN 2-12 intact, no sensory or motor deficits, no tremors PSYCH: alert and oriented / able to understand and follow commands LABORATORY DATA: Please see below. IMAGING: No new imaging MICROBIOLOGY: BCx pending ASSESSMENT: is a 59 yr old M treated for gastritis, occult blood positive, alcohol withdrawl. PLAN: 1. Abdominal pain likely 2/2 to possible gastritis. Abdominal pain resolved. Resumed diet. Surgery has seen patient but is not doing anything at this time. PPI PO started, h. pylori ordered. 2. Alcohol withdrawal, mild. CIWA low. HR improving over today. C/w seizure precautions/Ativan per CIWA protocol/thiamine & folic acid. 3. Occult blood +. R/o GI bleed. F/u repeat occult blood. Low suspicion for acute bleed; possibly 2/2 to gastritis. Keep off xarelto for now. Surgery does not want to do scope at this time. Monitor closely. 4. Hyponatremia likely 2/2 potomania. Improving slowly. C/w IVFs. Monitor I&Os. 5. Transaminitis, improving. Likely due to alcohol abuse. Hep panel neg, f/u CMP daily. 6. Unsteady Gait / Debility. PT/OT. 7. Tobacco Abuse. Nicotine patch added. 8. Osteoporosis. F/u with PCP as oupatient. 9. Simple linear intersphincteric perianal fistula, which originates from approximately the 7 o'clock position of the anus and courses along the right side of the gluteal cleft. Can curbside surgery to discuss to see if needs to be addressed now. 10. Macular rash, likely adverse reaction to drug. Name unknown by patient. Improving significantly, in different stages of healing. 11. DVT px. Off anticoagulation while SCDs DISPOSITION: RCurrently inpatient status. Plan is discharge home when medically improved. VS, I&O, 24H, Fishbone Vital Signs/I&O Vital Signs Date Time Temp Pulse Resp B/P (MAP) Pulse Ox O2 Delivery O2 Flow Rate FiO2 12/01/19 18:00 98.4 92 16 138/78 (98) 96 Room Air I&O- Last 24 Hours up to 6 AM 12/01/19 06:00 Intake Total 1550 ml Output Total 200 ml Balance 1350 ml Laboratory Data 24H LABS Laboratory Tests 2 11/30/19 20:22: Anion Gap 8, Glomerular Filtration Rate > 60.0, Osmolality 259L, Lactic Acid Lev el 1.5, Calcium Level 8.8, Total Bilirubin 0.2, Direct Bilirubin 0.1, Aspartate Amino Transf (AST/SGOT) 57H, Alanine Aminotransferase (ALT/SGPT) 53, Alkaline Phosphatase 156H, Total Creatine Kinase 38L, Creatine Kinase MB 1.5, Creatine Kinase MB Relative Index 3.95, Troponin I < 0.02, Total Protein 7.2, Albumin 3.6, Albumin/Globulin Ratio 1.00, Amylase Level 38, Lipase 95, Ethyl Alcohol Level < 0.003 11/30/19 20:29: POC Glucose (Misc Panel) 128H, POC Sodium (Misc Panel) 127L, POC Potassium (Misc Panel) 4.2, POC Chloride (Misc Panel) 92L, POC Total CO2 (Misc Panel) 23.0, POC Blood Urea Nitrogen (Misc Panel 8, POC Ionized Calcium (Misc Panel) 4.3L, POC Creatinine (Misc Panel) 0.5L, POC Hematocrit (Misc Panel) 48.0 11/30/19 20:53: Urine Color YELLOW, Urine Appearance HAZY, Urine pH 7.0, Urine Specific [place] 1.014, Urine Protein NEGATIVE, Urine Glucose (UA) NEGATIVE, Urine Ketones TRACEH, Urine Blood NEGATIVE, Urine Nitrite NEGATIVE, Urine Bilirubin NEGATIVE, Urine Urobilinogen 2.0H, Urine Leukocyte Esterase NEGATIVE, Urine WBC (Auto) 1, Urine RBC (Auto) 3, Urine Hyaline Casts (Auto) 0, Urine Bacteria (Auto) NEGATIVE, Urine Squamous Epithelial Cells 2, Urine Amorphous Sediment SMALLH, Urine Mucus (Auto) SMALL, Urine Sperm (Auto) 11/30/19 23:02: Coronavirus (COVID-19)(PCR) NEGATIVE 12/01/19 03:07: Nucleated Red Blood Cells % (auto) 0.0, Anion Gap 8, Glomerular Filtration Rate > 60.0, Calcium Level 8.1L, Total Bilirubin 0.2, Aspartate Amino Transf (AST/SGOT) 48H, Alanine Aminotransferase (ALT/SGPT) 45, Alkaline Phosphatase 123H, Troponin I < 0.02, Total Protein 6.0L, Albumin 3.1L, Albumin/Globulin Ratio 1.07 12/01/19 08:43: Troponin I < 0.02, Iron Level 112, Total Iron Binding Capacity 179L, Transferrin % Saturation 62.6H, Ferritin 634H, Hepatitis A IgM Antibody NEGATIVE, Hepatitis B Surface Antigen NEGATIVE, Hepatitis B Core IgM Antibody NEGATIVE, Hepatitis C Antibody Index 0.1 CBC/BMP Laboratory Tests 11/30/19 20:22 12/01/19 03:07 12/01/19 08:43 12/01/19 14:43 Microbiology Microbiology 11/30/19 Blood Culture, Received Pending 11/30/19 Blood Culture - Preliminary, Resulted No growth after 24 hours . All specim... Current Medications Current Medications Medications (Trade) Dose Ordered Sig/Agata Route PRN Reason Start Time Stop Time Status Last Admin Dose Admin Acetaminophen (Tylenol Tab) 650 mg Q4H PRN PO PAIN OR FEVER 11/30/19 23:00 Al Hydrox/Mg Hydrox/Simethicone (Mylanta) 30 ml DAILY PRN PO DYSPEPSIA 11/30/19 23:00 Bismuth Subsalicylate (Pepto Bismol) 30 ml Q6HP PRN PO abdominal pain 11/30/19 23:00 Ceftriaxone Sodium 1 gm/ Dextrose 50 ml @ 100 mls/hr Q24H IV 12/01/19 08:00 12/01/19 08:14 Docusate Sodium (Colace) 100 mg BID PO 11/30/19 21:00 12/01/19 08:15 Folic Acid (Folic Acid) 1 mg DAILY PO 12/01/19 09:00 12/01/19 06:19 DC Folic Acid 1 mg/ Sodium Chloride 50.2 ml @ 100.4 mls/ hr DAILY IV 12/01/19 09:00 12/01/19 09:20 Home Med (Med Rec Complete!) ASDIRECTED XX 12/01/19 07:00 12/01/19 07:04 DC Lorazepam (Ativan) 1 mg STAT STAT IV 11/30/19 21:56 11/30/19 21:57 DC 11/30/19 22:06 Lorazepam (Ativan) 2 mg ASDIRECTED PRN PO SEE PROTOCOL 11/30/19 23:00 12/01/19 06:19 DC Lorazepam (Ativan) 2 mg Q2HP PRN IV per [facility] protocol 12/01/19 06:15 Multivitamins (Theragram-M) 1 tab DAILY PO 12/01/19 09:00 12/01/19 06:19 DC Nicotine (Nicoderm Cq 21mg) 1 patch DAILY TD 12/01/19 09:00 12/01/19 11:49 Octreotide Acetate 1200 mcg/ Sodium Chloride 240 ml @ 10 mls/hr Q24H IV 12/01/19 06:12 12/01/19 09:57 Ondansetron HCl (ZOFRAN INJection) 4 mg Q4HP PRN IV NAUSEA OR VOMITING 11/30/19 23:00 Pantoprazole Sodium (Protonix) 40 mg BID IV 12/01/19 09:00 12/01/19 08:15 Sodium Chloride 1,000 ml @ 60 mls/hr [id number] IV 12/01/19 06:07 12/01/19 06:56 Sucralfate (Carafate) 1 gm ACHS PO 12/01/19 07:30 12/01/19 18:02 Thiamine HCl (Thiamine HCl) 100 mg BID PO 11/30/19 21:00 12/01/19 06:19 DC 12/01/19 01:42 Thiamine HCl (VITAMIN B1 INJection) 100 mg DAILY IM 12/01/19 09:00 12/01/19 08:15 Allergies Coded Allergies: sulfamethoxazole (Verified Allergy, Intermediate, RASH AND ITCHING ALL OVER BODY, 12/01/19) Shanta Berkowitz MD December 01, 2019 20:04
[2019-12-01] MEDS ORDERED: ALBUTEROL SULFATE 2.5 MG/0.5 ML INH NEB SOLN NEB PRN (20:15)
[2019-12-01] MEDS: traZODone 50 MG TAB PO SCH (21:15)
[2019-12-01] MEDS: GABAPENTIN 300 MG CAP PO SCH (21:15)
[2019-12-01] MEDS: METOPROLOL TART 12.5 MG PER 1/2 TAB PO SCH (21:16)
[2019-12-01] MEDS: ACETAMINOPHEN TAB 650MG DOSE (2X325MG) PO PRN (21:17)
[2019-12-02] VITALS (7 sets, daily range): BP systolic 103–122; BP diastolic 51–76
[2019-12-02] MEDS: OCTREOTIDE ACETATE 1,200 MCG in NS 238.8 ML IV SCH (05:42)
[2019-12-02 05:53] LABS: HEMOGLOBIN 13.4 g/dl (13.5-17.5); MEAN CORPUSCULAR HEMOGLOBIN 31.1 pg (27.0-33.0); MEAN CORPUSCULAR HGB CONC 36.2 g/dl (32.0-36.5); MEAN CORPUSCULAR VOLUME 85.8 fl (80.0-96.0); PLATELET COUNT, AUTOMATED 439 10^3/uL (150-450); RED BLOOD COUNT 4.31 10^6/uL (4.30-6.10); WHITE BLOOD COUNT 5.7 10^3/uL (4.0-10.0)
[2019-12-02 06:24] LABS: ALT/SGPT 37 U/L (12-78); BILIRUBIN,TOTAL 0.1 MG/DL (0.2-1.0); BLOOD UREA NITROGEN 6 MG/DL (7-18); CALCIUM LEVEL 7.6 MG/DL (8.8-10.2); CARBON DIOXIDE LEVEL 25 MEQ/L (21-32); CHLORIDE LEVEL 100 MEQ/L (98-107); GLOMERULAR FILTRATION RATE > 60.0 (>49); GLUCOSE, FASTING 121 MG/DL (70-100); POTASSIUM SERUM 4.1 MEQ/L (3.5-5.1); SODIUM LEVEL 131 MEQ/L (136-145)
[2019-12-02 06:25] LABS: ALBUMIN 2.6 GM/DL (3.2-5.2); TOTAL PROTEIN 5.2 GM/DL (6.4-8.2)
[2019-12-02] MEDS: SUCRALFATE 1 GM TAB PO SCH ×4 (07:36→20:20)
[2019-12-02] MEDS: ACETAMINOPHEN TAB 650MG DOSE (2X325MG) PO PRN ×3 (07:36→17:42)
[2019-12-02] MEDS: METOPROLOL TART 12.5 MG PER 1/2 TAB PO SCH ×2 (08:35→20:20)
[2019-12-02] MEDS: THIAMINE 100 MG TAB PO SCH (08:35)
[2019-12-02] MEDS: PANTOPRAZOLE 40MG TAB (PROTONIX) PO SCH (08:35)
[2019-12-02] MEDS: DOCUSATE SODIUM 100 MG CAP PO SCH ×2 (08:35→20:20)
[2019-12-02] MEDS: FOLIC ACID 1 MG in NS 50 ML IV SCH (08:36)
[2019-12-02] MEDS: NICOTINE 21MG/24HR 1 EA TRANSDERMAL TD SCH (08:36)
[2019-12-02] MEDS: NS 1,000 ML IV SCH ×2 (12:04→22:09)
[2019-12-02] MEDS: POLYVINYL ALCOHOL OPHTH SOLN 15 ML(LIQUITEARS) OU SCH ×3 (13:41→20:19)
[2019-12-02] MEDS ORDERED: MIRALAX *UNIT DOSE* 17GM PACKET PO PRN (18:45)
--- NOTE | 2019-12-02 19:00 | IPNPDOC ---
Date Seen The patient was seen on 12/02/19. Progress Note SUBJECTIVE: Continues be abdominal pain, chest pain free. Complains of headache today, CIWA score very low and not requiring ativan. Ordered repeat occult blood. Was placed on anticoagulation s/p surgery in 08/2019; however, unsure as to why it was continued. No hx of atrial fib or prior clot known to us. If no bleeding overnight, want to discharge home in AM with f/u with PCP. Denies n/v/d. OBJECTIVE: VITAL SIGNS: Please see below GEN: Slim build/ NAD, hard of hearing INTEGUMENT: not flushed/ not jaundice / he has recent post laparoscopy scars at the mid abdomen, there is no discharge. Rash on all extremities, macular but no papular- in different stages of healing - patient states this has improved from how it looked previously HEENT: NCAT / moist membranes dry, left eye more sunk in-chronic CVS: RRR/NMRG/ no lower extremity edema LUNGS: lungs are clear to auscultation bilaterally on room air ABDOMEN: Contour ( scaphoid) / soft, nontender, BS + in 4 quadrants MSK/EXTREMITIES: range of motion intact in all 4 extremities NEURO: CN 2-12 intact, no sensory or motor deficits, no tremors PSYCH: mood and affect appropriate. LABORATORY DATA: Please see below. IMAGING: No new imaging MICROBIOLOGY: BCx- NG at 24 hrs ASSESSMENT: is a 59 yr old M treated for gastritis, occult blood positive, alcohol withdrawl. PLAN: 1. Gastritis. Possible cause of occult blood. C/w diet, PPI. F/u repeat occult blood, h. pylori pending. 2. Alcohol withdrawal, mild. CIWA low. No tremoring, diaphoresis, hallucinations but has headache. C/w CIWA protocol/thiamine & folic acid, 3. GI bleed possibly 2/2 to gastritis. Occult blood +. No surgical intervention or scoping planned. F/u repeat occult blood. Unknown as to why patient still on xarelto if placed on it for surgery in 08/2019- no atrial fib, dvt/pe hx. Holding xarelto, no s/s of bleeding. 4. Hyponatremia likely 2/2 potomania. Improving slowly but will increase IVFs overight. Monitor I&Os. 5. Headache likely 2/2 to problem #2. C/w plan above, tylenol, IVFs. 6. Transaminitis- resolved. Likely due to alcohol abuse. Hep panel neg. 7. Unsteady Gait / Debility. PT/OT attempted to work with him today, patient refused. Will attempt again tomorrow. 8. Tobacco Abuse. Nicotine patch added. 9. Osteoporosis. F/u with PCP as outpatient. 10. Simple linear intersphincteric perianal fistula, which originates from approximately the 7 o'clock position of the anus and courses along the right side of the gluteal cleft. Can curbside surgery to discuss to see if needs to be addressed now. No pain, WBC wnl, afebrile. 10. Macular rash, likely adverse reaction to drug. Name unknown by patient. Improving significantly, in different stages of healing. 11. GI px: PPI daily 12. Tobacco use: Nicotine patch. 13. DVT px. Off anticoagulation, SCDs DISPOSITION: Currently inpatient status. Plan is discharge home when medically improved, hopefully on 12/03/19. VS, I&O, 24H, [place] Vital Signs/I&O Vital Signs Date Time Temp Pulse Resp B/P (MAP) Pulse Ox O2 Delivery O2 Flow Rate FiO2 12/02/19 18:00 96.8 77 20 120/69 (86) 99 Room Air I&O- Last 24 Hours up to 6 AM 12/02/19 05:59 Intake Total 2500.2 ml Output Total 1875 ml Balance 625.2 ml Laboratory Data 24H LABS Laboratory Tests 2 12/02/19 05:20: Nucleated Red Blood Cells % (auto) 0.0, Anion Gap 6L, Glomerular Filtration Rate > 60.0, Calcium Level 7.6L, Total Bilirubin 0.1L, Aspartate Amino Transf (AST/SGOT) 26, Alanine Aminotransferase (ALT/SGPT) 37, Alkaline Phosphatase 109, Total Protein 5.2L, Albumin 2.6L, Albumin/Globulin Ratio 1.00 CBC/BMP Laboratory Tests 12/01/19 21:06 12/02/19 05:20 Microbiology Microbiology 11/30/19 Blood Culture - Preliminary, Resulted No growth after 24 hours . All specim... 11/30/19 Blood Culture - Preliminary, Resulted No growth after 24 hours . All specim... Current Medications Current Medications Medications (Trade) Dose Ordered Sig/Agata Route PRN Reason Start Time Stop Time Status Last Admin Dose Admin Acetaminophen (Tylenol Tab) 650 mg Q4H PRN PO PAIN OR FEVER 11/30/19 23:00 12/02/19 17:42 Al Hydrox/Mg Hydrox/Simethicone (Mylanta) 30 ml DAILY PRN PO DYSPEPSIA 11/30/19 23:00 Albuterol Sulfate (Proventil Neb) 2.5 mg Q4HP PRN NEB SOB/WHEEZING 12/01/19 20:15 Alendronate Sodium (Fosamax) 70 mg Tu@0600 PO 12/07/19 06:00 Artificial Tears ([place]wa Tears) 2 drop QID OU 12/02/19 13:00 12/02/19 17:11 Bismuth Subsalicylate (Pepto Bismol) 30 ml Q6HP PRN PO abdominal pain 11/30/19 23:00 Ceftriaxone Sodium 1 gm/ Dextrose 50 ml @ 100 mls/hr Q24H IV 12/01/19 08:00 12/01/19 20:10 DC 12/01/19 08:14 Ciprofloxacin (Ciloxan 0.3%) APPLY THIN LAYER QHS OU 12/02/19 21:00 Docusate Sodium (Colace) 100 mg BID PO 11/30/19 21:00 12/02/19 08:35 Folic Acid (Folic Acid) 1 mg DAILY PO 12/01/19 09:00 12/01/19 06:19 DC Folic Acid 1 mg/ Sodium Chloride 50.2 ml @ 100.4 mls/ hr DAILY IV 12/01/19 09:00 12/02/19 08:36 Gabapentin (Neurontin) 300 mg QHS PO 12/01/19 21:00 12/01/19 21:15 Home Med (Med Rec Complete!) ASDIRECTED XX 12/01/19 07:00 12/01/19 07:04 DC Lorazepam (Ativan) 1 mg STAT STAT IV 11/30/19 21:56 11/30/19 21:57 DC 11/30/19 22:06 Lorazepam (Ativan) 2 mg ASDIRECTED PRN PO SEE PROTOCOL 11/30/19 23:00 12/01/19 06:19 DC Lorazepam (Ativan) 2 mg Q2HP PRN IV per ciwa protocol 12/01/19 06:15 Metoprolol Tartrate (Lopressor) 37.5 mg BID PO 12/01/19 21:00 12/02/19 08:35 Multivitamins (Theragram-M) 1 tab DAILY PO 12/01/19 09:00 12/01/19 06:19 DC Nicotine (Nicoderm Cq 21mg) 1 patch DAILY TD 12/01/19 09:00 12/02/19 08:36 Octreotide Acetate 1200 mcg/ Sodium Chloride 240 ml @ 10 mls/hr Q24H IV 12/01/19 06:12 12/02/19 08:48 DC 12/02/19 05:42 Ondansetron HCl (ZOFRAN INJection) 4 mg Q4HP PRN IV NAUSEA OR VOMITING 11/30/19 23:00 Pantoprazole Sodium (Protonix) 40 mg BID IV 12/01/19 09:00 12/01/19 19:53 DC 12/01/19 08:15 Pantoprazole Sodium (Protonix) 40 mg DAILY PO 12/02/19 09:00 12/02/19 08:35 Sodium Chloride 1,000 ml @ 100 mls/hr Q10H IV 12/01/19 06:07 12/02/19 12:04 Sucralfate (Carafate) 1 gm ACHS PO 12/01/19 07:30 12/02/19 17:42 Thiamine HCl (Thiamine HCl) 100 mg BID PO 11/30/19 21:00 12/01/19 06:19 DC 12/01/19 01:42 Thiamine HCl (Thiamine HCl) 100 mg DAILY PO 12/02/19 09:00 12/02/19 08:35 Thiamine HCl (VITAMIN B1 INJection) 100 mg DAILY IM 12/01/19 09:00 12/01/19 19:47 DC 12/01/19 08:15 Trazodone HCl (Desyrel) 150 mg QHS PO 12/01/19 21:00 12/01/19 21:15 Allergies Coded Allergies: sulfamethoxazole (Verified Allergy, Intermediate, RASH AND ITCHING ALL OVER BODY, 12/01/19) Shanta Berkowitz MD December 02, 2019 18:59
[2019-12-02] MEDS: traZODone 50 MG TAB PO SCH (20:20)
[2019-12-02] MEDS: GABAPENTIN 300 MG CAP PO SCH (20:20)
[2019-12-02] MEDS ORDERED: CIPROFLOXACIN 0.3% OPHTH OINTMENT OU SCH (21:00)
[2019-12-03 02:00] VITALS: BP 120/70
[2019-12-03 05:57] VITALS: BP 121/68
[2019-12-03 06:00] VITALS: BP 121/68
[2019-12-03 06:02] LABS: HEMATOCRIT 36.4 % (42.0-52.0); HEMOGLOBIN 12.8 g/dl (13.5-17.5); MEAN CORPUSCULAR HEMOGLOBIN 30.4 pg (27.0-33.0); MEAN CORPUSCULAR HGB CONC 35.2 g/dl (32.0-36.5); MEAN CORPUSCULAR VOLUME 86.5 fl (80.0-96.0); PLATELET COUNT, AUTOMATED 470 10^3/uL (150-450); RED BLOOD COUNT 4.21 10^6/uL (4.30-6.10); WHITE BLOOD COUNT 7.3 10^3/uL (4.0-10.0)
[2019-12-03] MEDS: ACETAMINOPHEN TAB 650MG DOSE (2X325MG) PO PRN (06:13)
[2019-12-03 06:43] LABS: ALBUMIN 2.4 GM/DL (3.2-5.2); ALT/SGPT 61 U/L (12-78); BILIRUBIN,TOTAL 0.2 MG/DL (0.2-1.0); BLOOD UREA NITROGEN 6 MG/DL (7-18); CALCIUM LEVEL 7.7 MG/DL (8.8-10.2); CARBON DIOXIDE LEVEL 25 MEQ/L (21-32); CHLORIDE LEVEL 103 MEQ/L (98-107); CREATININE FOR GFR 0.34 MG/DL (0.70-1.30); GLOMERULAR FILTRATION RATE > 60.0 (>49); GLUCOSE, FASTING 102 MG/DL (70-100); SODIUM LEVEL 134 MEQ/L (136-145); TOTAL PROTEIN 5.1 GM/DL (6.4-8.2)
[2019-12-03 09:00] VITALS: BP 105/62
[2019-12-03] MEDS: METOPROLOL TART 12.5 MG PER 1/2 TAB PO SCH (09:00)
[2019-12-03] MEDS: DOCUSATE SODIUM 100 MG CAP PO SCH (09:52)
[2019-12-03] MEDS: SUCRALFATE 1 GM TAB PO SCH ×2 (09:52→12:17)
[2019-12-03] MEDS: NS 1,000 ML IV SCH (09:52)
[2019-12-03] MEDS: PANTOPRAZOLE 40MG TAB (PROTONIX) PO SCH (09:52)
[2019-12-03] MEDS: THIAMINE 100 MG TAB PO SCH (09:53)
[2019-12-03] MEDS: FOLIC ACID 1 MG in NS 50 ML IV SCH (09:53)
[2019-12-03] MEDS: POLYVINYL ALCOHOL OPHTH SOLN 15 ML(LIQUITEARS) OU SCH ×2 (09:53→12:16)
[2019-12-03] MEDS: NICOTINE 21MG/24HR 1 EA TRANSDERMAL TD SCH (09:54)
[2019-12-03] MEDS ORDERED: PROT1TAB2 PO (10:36)
--- NOTE | 2019-12-03 16:31 | DS.PDOC ---
Discharge Summary General Date of Admission November 30, 2019 at 22:59 Date of Discharge 12/03/19 Attending Physician: Shanta Berkowitz MD Discharge Summary HISTORY OF PRESENT ILLNESS: This is a 59-year-old gentleman who presented with complaints of sharp, 9 out of 10 in severity, mid abdominal pain that began on Friday; the pain was so severe that he drink less alcohol than he usually does. At his baseline he drinks 4 beers a day but today he only drank half a can. He is also complaining of chest pain, and left lower extremity pain. He denied having nausea, vomiting, fever or chills. The history was corroborated by his [id number] Shala who can be reached at [phone]. HOSPITAL COURSE: During patient's hospital stay, there was no signs of acute bleeding. Surgery saw patient and did not recommend scope. Diet was started and the patient tolerated it well. He remained off of several O while here. Social work and myself look through records and could not find a reason why the patient was on Xarelto long-term. He was started on it after surgery in August of this year; however, there are no documented DVTs or pulmonary embolism or heart arrhythmia that would indicate to continue. Alcohol withdrawal symptoms rapidly improved. The patient was started on increased dose of IV fluids for hyponatremia and we saw improvement in his sodium levels. He had resolved abdominal pain, resolved chest pain. We examined patient's skin and looks like rash is macular and adverse effect from drug used recently-improving. Repeat occult blood was negative after being off at this Xarelto for almost 3 days. Due to resolution of symptoms and improvement overall the patient was discharged home on 12/03/2019 with follow-up with his primary care provider. The patient should remain off of Xarelto unless placed back on by his primary care provider. He will be discharged with a proton pump inhibitor for gastritis which could have possibly caused occult blood to be positive. At the time of discharge the patient denied headache, nausea, vomiting, shortness of breath, abdominal pain, fevers or chills. REVIEW OF SYSTEMS: 12 point review of systems negative except as listed in HPI PAST MEDICAL/ SURGICAL HISTORY: Emphysema Pulmonary hypertension with PSAP 49 Osteoporosis with history of C7, T3 T4, T5, T6, T7, T8, T9 and, T11 compression fractures Old left third, fourth, fifth, sixth, seventh, eighth, ninth and 11th rib fractures Old right eighth rib fracture History of DTs when he doesn't drink. Splenic hematoma 09/19/19 Left intertrochanteric fracture, status post left intramedullary nail. 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 DISCHARGE MEDICATIONS: Please see below. PHYSICAL EXAMINATION: VITAL SIGNS: Please see below GEN: Slim build/ NAD, hard of hearing, AAOx3 INTEGUMENT: not flushed/ not jaundice / he has recent post laparoscopy scars at the mid abdomen, there is no discharge. Rash on all extremities, macular but no papular- in different stages of healing - patient states this has improved from how it looked previously HEENT: NCAT / moist membranes dry, left eye more sunk in-chronic CVS: RRR/NMRG/ no lower extremity edema LUNGS: lungs are clear to auscultation bilaterally on room air ABDOMEN: Contour ( scaphoid) / soft, nontender, BS + in 4 quadrants MSK/EXTREMITIES: range of motion intact in all 4 extremities NEURO: CN 2-12 intact, no sensory or motor deficits, no tremors PSYCH: mood and affect appropriate. LABORATORY DATA: Please see below. IMAGING: CT abd/pelvis: 1. Thickening of the wall of the urinary bladder, which may be secondary to its partially distended state, bladder wall hypertrophy, or cystitis. Correlation with urinalysis is suggested. 2. Simple linear intersphincteric perianal fistula, which originates from approximately the 7 o'clock position of the anus and courses along the right side of the gluteal cleft. 3. Thickening of the wall of the stomach, which may be secondary to its decompressed state versus gastritis. 4. Sigmoid diverticulosis without evidence for diverticulitis. CTA chest: 1. No acute findings in the chest. No pulmonary embolism. 2. Chronic compression fractures of C7, T3, T4, T5, T6, T7, T8, T9, and T11, which are similar in appearance compared to the prior CTA chest on 09/19/2019. 3. Chronic healed fracture deformities involving the right lateral 8th rib and left 3rd through 10th ribs. 4. Centrilobular emphysematous changes, which are similar in appearance compared to the prior CTA chest on 09/19/2019. MICROBIOLOGY: BCx- NG ASSESSMENT: is a 59 yr old M treated for gastritis, occult blood positive, alcohol withdrawl. PLAN: 1. Gastritis. Possible cause of occult blood initially but repeat neg. C/w PPI. H. pylori neg. See plan below. 2. GI bleed possibly 2/2 to gastritis, on xarelto previously. Occult blood neg on repeat, never found reason to continue xarelto in medical records- started post operatively in 08/2019, no hx of DVT, PE on file. Pt is poor historian. No s urgical intervention or scoping planned. D/c home without xarelto, f/u with PCP to discuss if needed to restart after 2 weeks. PPI ordered. 3. Alcohol withdrawal- resolved. 4. Hyponatremia likely 2/2 potomania. Improved with IVFs. Alcohol cessation would help this. 5. Headache likely 2/2 to problem #3. Resolved. 6. Transaminitis- resolved 7. Unsteady Gait / Debility. PT/OT attempted to work with him today, patient refused. 8. Tobacco Abuse. Smoking cessation counselling given. 9. Osteoporosis. F/u with PCP as outpatient. 10. Simple linear intersphincteric perianal fistula, which originates from approximately the 7 o'clock position of the anus and courses along the right side of the gluteal cleft. Would recommend f/u with PCP, refer to o/p surgery. 11. Macular rash, likely adverse reaction to drug. Name unknown by patient. Improving significantly, in different stages of healing. DISPOSITION: Discharged home today in improved condition. Plan is for patient to follow up with PCP within 1-2 weeks after discharge. TIME SPENT ON DISCHARGE: 25 minutes. Vital Signs/I&Os Vital Signs Date Time Temp Pulse Resp B/P (MAP) Pulse Ox O2 Delivery O2 Flow Rate FiO2 12/03/19 09:00 87 105/62 12/03/19 06:00 98.2 18 97 Room Air I&O- Last 24 Hours up to 6 AM 12/03/19 06:00 Intake Total 3680 ml Output Total 2105 ml Balance 1575 ml Laboratory Data Labs 24H Laboratory Tests 2 12/03/19 05:15: Nucleated Red Blood Cells % (auto) 0.0, Anion Gap 6L, Glomerular Filtration Rate > 60.0, Calcium Level 7.7L, Total Bilirubin 0.2#, Aspartate Amino Transf (AST/SGOT) 49H, Alanine Aminotransferase (ALT/SGPT) 61, Alkaline Phosphatase 108, Total Protein 5.1L, Albumin 2.4L, Albumin/Globulin Ratio 0.89L CBC/BMP Laboratory Tests 12/03/19 05:15 Microbiology Microbiology 12/03/19 Stool Occult Blood (ZUHAIR) - Final, Complete 11/30/19 Blood Culture - Preliminary, Resulted No Growth after 48 hours. All Specime... 11/30/19 Blood Culture - Preliminary, Resulted No Growth after 48 hours. All Specime... Discharge Medications Scheduled Alendronate Sodium (Fosamax) 70 Mg Tablet, 70 MG PO 1XWK, (Reported) TUESDAYS Ciprofloxacin (Ciloxan) 3.5 Gm Oint...g., 1 APPLIC TOP QHS, (Reported) APPLY A THIN LAYER IN EACH EYE AT BEDTIME DIRECTED Gabapentin (Gabapentin) 300 Mg Capsule, 300 MG PO QHS, (Reported) Glycerin/Propylene Glycol (Artificial Tears Drops) 15 Ml Drops, 2 DROP OU QID, (Reported) Metoprolol Tartrate (Metoprolol Tartrate) 25 Mg Tablet, 37.5 MG PO BID, (Reported) Multivitamin (Multivitamins) 1 Each Capsule, 1 CAP PO DAILY, (Reported) Mv-Min/FA/Vit K/Lycop/Lut/Zeax (Ocuvite Eye Plus Multi Tablet) 1 Each Tablet, 1 TAB PO BID, (Reported) Pantoprazole Sodium (Protonix) 40 Mg Tablet.dr, 40 MG PO DAILY Trazodone HCl (Trazodone HCl) 150 Mg Tablet, 150 MG PO QHS, (Reported) Umeclidinium [place] (Incruse Ellipta) 62.5 Mcg Blst.w.dev, 1 PUFF INH DAILY, (Reported) Scheduled PRN Acetaminophen (Acetaminophen) 500 Mg Tablet, 1,000 MG PO Q8H PRN for HEADACHE, (Reported) Albuterol Sulfate (Ventolin Hfa) 18 Gm Hfa.aer.ad, 2 PUFFS INH QID PRN for SOB/WHEEZING, (Reported) Lactulose (Lactulose) 10 Gm/15 Ml Solution, 15 ML PO DAILY PRN for CONSTIPATION, (Reported) Allergies Coded Allergies: sulfamethoxazole (Verified Allergy, Intermediate, RASH AND ITCHING ALL OVER BODY, 12/01/19) Shanta Berkowitz MD December 03, 2019 16:31
[2019-12-04] MEDS ORDERED: FOLIC ACID 1 MG TAB PO SCH (09:00)
[2019-12-07] MEDS ORDERED: ALENDRONATE 35MG TABLET PO SCH (06:00)
== END 2019-12-03 14:06 | disposition home or self-care (01) | DRG 241 ==
LOC: EDBD 18:17 → M ED 18:17 → M ED INP 22:59 → ENRESERV 12-01 00:14 → M MSPAV 12-01 01:30
PROVIDERS: ADMIT Internal Medicine; ATTEND Internal Medicine
DX: K29.71 Gastritis, unspecified, with bleeding (principal); E87.1 Hypo-osmolality and hyponatremia; I27.20 Pulmonary hypertension, unspecified; M80.08XA Age-related osteoporosis with current pathological fracture, vertebra(e), initial encounter for fracture; J43.9 Emphysema, unspecified; K60.3 Anal fistula; R74.0 Nonspecific elevation of levels of transaminase and lactic acid dehydrogenase [LDH]; R53.81 Other malaise; F10.239 Alcohol dependence with withdrawal, unspecified; R26.81 Unsteadiness on feet; R51 Headache; L27.0 Generalized skin eruption due to drugs and medicaments taken internally; F17.200 Nicotine dependence, unspecified, uncomplicated; Z79.01 Long term (current) use of anticoagulants; Z79.52 Long term (current) use of systemic steroids; Z79.899 Other long term (current) drug therapy; Z88.2 Allergy status to sulfonamides; Z87.81 Personal history of (healed) traumatic fracture; Z90.49 Acquired absence of other specified parts of digestive tract; T50.905A Adverse effect of unspecified drugs, medicaments and biological substances, initial encounter

== ENCOUNTER 2019-12-04 15:54 | Emergency (ER) | payer OTHER ==
[~2019-12-04] VITALS: Ht 167.6 cm; Wt 54.5 kg
[~2019-12-04 15:54] MED LIST changes: +CIPR3OPO TOP; +COMMENTS; +INCR1INH INH; +LACT10SO3 PO; +METO1TAB87 PO; +TRAZ150T90 PO; +TRAZ1TAB14 PO; +VENTAER INH
[2019-12-04 16:43] LABS: BASO # 0.1 10^3/uL (0.0-0.2); BASO % 0.7 % (0.0-1.0); EOS % 0.3 % (0.0-3.0); HEMATOCRIT 39.5 % (42.0-52.0); HEMOGLOBIN 13.9 g/dl (13.5-17.5); LYMPH # 2.2 10^3/uL (1.5-5.0); LYMPH % 25.7 % (24.0-44.0); MEAN CORPUSCULAR HEMOGLOBIN 30.2 pg (27.0-33.0); MEAN CORPUSCULAR HGB CONC 35.2 g/dl (32.0-36.5); MEAN CORPUSCULAR VOLUME 85.7 fl (80.0-96.0); MONO # 1.5 10^3/uL (0.0-0.8); MONO % 17.2 % (0.0-5.0); NEUTROPHILS # 4.8 10^3/uL (1.5-8.5); NEUTROPHILS % 55.8 % (36.0-66.0); PLATELET COUNT, AUTOMATED 561 10^3/uL (150-450); RED BLOOD COUNT 4.61 10^6/uL (4.30-6.10); WHITE BLOOD COUNT 8.6 10^3/uL (4.0-10.0)
[2019-12-04 16:56] LABS: INR 1.08; PROTHROMBIN TIME 13.7 SECONDS (11.8-14.0)
[2019-12-04 17:15] LABS: ALBUMIN 3.2 GM/DL (3.2-5.2); ALT/SGPT 62 U/L (12-78); AMYLASE 49 U/L (25-115); BILIRUBIN,DIRECT < 0.1 MG/DL (0.0-0.2); BILIRUBIN,TOTAL 0.3 MG/DL (0.2-1.0); ETHYL ALCOHOL (ETHANOL) < 0.003 % (0.000-0.010); LIPASE 163 U/L (73-393); TOTAL PROTEIN 6.4 GM/DL (6.4-8.2)
[2019-12-04 17:35] VITALS: BP 148/82
--- NOTE | 2019-12-05 11:16 | ECGEPIP ---
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
== END 2019-12-04 17:54 | disposition home or self-care (01) ==
LOC: M ED 15:54
DX: K60.3 Anal fistula (principal); J43.9 Emphysema, unspecified; Z87.19 Personal history of other diseases of the digestive system; Z79.899 Other long term (current) drug therapy; Z88.2 Allergy status to sulfonamides; F17.210 Nicotine dependence, cigarettes, uncomplicated
CPT/HCPCS: 36415; 80047; 80076; 82150; 83605; 83690; 85025; 85610; 86850; 86900; 86901; 87040; 93005; 93041; 99285; G0480

== ENCOUNTER 2022-03-31 13:50 | Emergency (ER) | payer OTHER, SELFPAY ==
[~2022-03-31] VITALS: Ht 182.9 cm; Wt 58.2 kg
[~2022-03-31 13:50] MED LIST changes: +ALEN70TA87 PO; -FOSA70TA PO; +GABA-282 PO; -GABA-843 PO
[2022-03-31 17:00] LABS: BASO # 0.1 10^3/uL (0.0-0.2); BASO % 0.9 % (0.0-1.0); EOS % 0.1 % (0.0-3.0); LYMPH # 2.6 10^3/uL (1.5-5.0); LYMPH % 21.1 % (24.0-44.0); MEAN CORPUSCULAR HEMOGLOBIN 32.5 pg (27.0-33.0); MEAN CORPUSCULAR HGB CONC 35.7 g/dl (32.0-36.5); MEAN CORPUSCULAR VOLUME 90.9 fl (80.0-96.0); MONO % 8.4 % (2.0-8.0); NEUTROPHILS # 8.4 10^3/uL (1.5-8.5); NEUTROPHILS % 69.1 % (36.0-66.0); PLATELET COUNT, AUTOMATED 572 10^3/uL (150-450); RED BLOOD COUNT 4.62 10^6/uL (4.30-6.10); WHITE BLOOD COUNT 12.1 10^3/uL (4.0-10.0)
[2022-03-31 17:13] LABS: INR 1.06; PROTHROMBIN TIME 14.2 SECONDS (12.7-14.5)
[2022-03-31 17:41] LABS: ALBUMIN 4.5 GM/DL (3.2-5.2); ALT/SGPT 23 U/L (12-78); BILIRUBIN,DIRECT 0.2 MG/DL (0.0-0.2); BILIRUBIN,TOTAL 0.6 MG/DL (0.2-1.0); BLOOD UREA NITROGEN 6 MG/DL (7-18); CALCIUM LEVEL 9.3 MG/DL (8.8-10.2); CARBON DIOXIDE LEVEL 26 MEQ/L (21-32); CHLORIDE LEVEL 97 MEQ/L (98-107); CREATININE FOR GFR 0.66 MG/DL (0.70-1.30); GLOMERULAR FILTRATION RATE > 60.0 (>49); GLUCOSE, FASTING 110 MG/DL (70-100); LIPASE 110 U/L (73-393); POTASSIUM SERUM 5.2 MEQ/L (3.5-5.1); SODIUM LEVEL 131 MEQ/L (136-145); TOTAL PROTEIN 8.1 GM/DL (6.4-8.2)
[2022-03-31] MEDS ORDERED: ISOVUE-370 76% 100ML VIAL As Ordered ONE (17:51)
[2022-03-31 18:02] LABS: MAGNESIUM LEVEL 2.1 MG/DL (1.8-2.4)
[2022-03-31 18:24] VITALS: BP 160/85
[2022-03-31] MEDS ORDERED: REGL5TAB2 PO (18:55)
== END 2022-03-31 19:09 | disposition home or self-care (01) ==
LOC: M ED 13:50
DX: K56.7 Ileus, unspecified (principal); R19.7 Diarrhea, unspecified; Z90.81 Acquired absence of spleen; N40.1 Benign prostatic hyperplasia with lower urinary tract symptoms; K57.30 Diverticulosis of large intestine without perforation or abscess without bleeding; N20.0 Calculus of kidney; M48.061 Spinal stenosis, lumbar region without neurogenic claudication; M81.0 Age-related osteoporosis without current pathological fracture; J44.9 Chronic obstructive pulmonary disease, unspecified; I27.20 Pulmonary hypertension, unspecified; F17.200 Nicotine dependence, unspecified, uncomplicated; Z88.2 Allergy status to sulfonamides; Z79.51 Long term (current) use of inhaled steroids; Z79.899 Other long term (current) drug therapy
CPT/HCPCS: 36415; 74177; 80048; 80076; 83690; 83735; 85025; 85610; 99283; Q9967

== ENCOUNTER → 2022-08-19 | Outpatient (CLI) | payer OTHER, SELFPAY ==
[~2022-08-19] MED LIST changes: +E-Z-PAQUE 96% w/w SUSP 176GM BTL As Ordered ONE; +REGL5TAB2 PO
== END ==
LOC: M RAD 09:30
PROVIDERS: ATTEND Internal Medicine Gastroenterology
DX: R19.4 Change in bowel habit (principal)

== ENCOUNTER → 2022-09-02 | Outpatient (CLI) | payer MEDICAID, OTHER, SELFPAY ==
[~2022-09-02] MED LIST changes: -E-Z-PAQUE 96% w/w SUSP 176GM BTL As Ordered ONE; +GABA800T4 PO
== END ==
LOC: M LABSMTC 10:02
PROVIDERS: ATTEND Anesthesiology
DX: Z01.812 Encounter for preprocedural laboratory examination (principal); Z11.52 Encounter for screening for COVID-19

== ENCOUNTER 2022-09-05 08:32 | Day surgery (SDC) | payer OTHER ==
[~2022-09-05] VITALS: Ht 180.3 cm; Wt 59.0 kg
[~2022-09-05 08:32] MED LIST changes: +NS 1,000 ML IV ONE
[2022-09-05] MEDS ORDERED: LIDOCAINE 2% 100MG/5ML SDV (FOR ANES.) As Ordered ONE (09:41)
[2022-09-05] MEDS ORDERED: fentaNYL 100 MCG/2 ML INJECTION As Ordered ONE (09:41)
[2022-09-05] MEDS ORDERED: propofoL 200 MG/20 ML VIAL As Ordered ONE ×2 (09:41→10:00)
[2022-09-05 10:41] VITALS: BP 154/85
== END 2022-09-05 10:51 | disposition home or self-care (01) ==
LOC: M OPP 08:32
PROVIDERS: ATTEND Internal Medicine Gastroenterology
DX: R19.4 Change in bowel habit (principal); K63.5 Polyp of colon; K62.89 Other specified diseases of anus and rectum; K57.30 Diverticulosis of large intestine without perforation or abscess without bleeding; K64.8 Other hemorrhoids; R93.3 Abnormal findings on diagnostic imaging of other parts of digestive tract; I10 Essential (primary) hypertension; D64.9 Anemia, unspecified; F17.200 Nicotine dependence, unspecified, uncomplicated; J44.9 Chronic obstructive pulmonary disease, unspecified; Z79.51 Long term (current) use of inhaled steroids; Z88.1 Allergy status to other antibiotic agents
CPT/HCPCS: 43235; 45385; 88305; J3010

== ENCOUNTER 2024-07-07 19:07 | Emergency (ER) | payer MEDICARE, OTHER ==
[~2024-07-07] VITALS: Ht 182.9 cm; Wt 59.0 kg
[~2024-07-07 19:07] MED LIST changes: +GABA-1172 PO; +GABA-1635 PO; -GABA-282 PO; -GABA800T4 PO; -LACT10SO3 PO; +LACT10SO94 PO; -NS 1,000 ML IV ONE
[2024-07-07 20:22] LABS: HEMATOCRIT 31.5 % (42.0-52.0); HEMOGLOBIN 11.3 g/dl (13.5-17.5); MEAN CORPUSCULAR HEMOGLOBIN 32.5 pg (27.0-33.0); MEAN CORPUSCULAR HGB CONC 35.9 g/dl (32.0-36.5); MEAN CORPUSCULAR VOLUME 90.5 fl (80.0-96.0); PLATELET COUNT, AUTOMATED 561 10^3/uL (150-450); RED BLOOD COUNT 3.48 10^6/uL (4.30-6.10); WHITE BLOOD COUNT 11.6 10^3/uL (4.0-10.0)
[2024-07-07 20:26] LABS: BLOOD UREA NITROGEN 9 MG/DL (9-23); CARBON DIOXIDE LEVEL 24 MMOL/L (20-31); CHLORIDE LEVEL 98 MMOL/L (98-107); CREATININE FOR GFR 0.53 MG/DL (0.70-1.30); GLOMERULAR FILTRATION RATE > 60.0 (>49); GLUCOSE, FASTING 86 MG/DL (74-106); POTASSIUM SERUM 4.1 MMOL/L (3.5-5.1); SODIUM LEVEL 131 MMOL/L (136-145)
[2024-07-07 21:11] LABS: C REACTIVE PROTEIN QUANTITATIV 7.93 MG/DL (<1.0)
[2024-07-07 21:18] LABS: ERYTHROCYTE SEDIMENTATION RATE 68 mm/hr (0-20)
[2024-07-07] MEDS: ceFAZolin SOD 2 GM in IV 1 EA IV ONE (23:03)
[2024-07-07] MEDS ORDERED: DOXY-441 PO (23:29)
[2024-07-07 23:59] VITALS: BP 141/72; TEMP 98.4; O2SAT 99
== END 2024-07-07 23:59 | disposition home or self-care (01) ==
LOC: M ED 19:07 → EDBD 19:07 → M ED 23:59
DX: L03.116 Cellulitis of left lower limb (principal); F10.10 Alcohol abuse, uncomplicated; Z88.2 Allergy status to sulfonamides; Z79.51 Long term (current) use of inhaled steroids; Z79.2 Long term (current) use of antibiotics; Z79.899 Other long term (current) drug therapy
CPT/HCPCS: 73564; 73590; 73630; 80048; 85027; 85652; 86140; 87040; 93041; 93971; 94760; 96365; 99284; J0690

== ENCOUNTER 2025-05-03 14:07 | Emergency (ER) | payer MEDICARE ==
[~2025-05-03] VITALS: Ht 172.7 cm; Wt 54.0 kg
[~2025-05-03 14:07] MED LIST changes: +CIPR-249 PO; +DOXY-441 PO; -EQL50TAB2 PO; +VITA1TAB82 PO
[2025-05-03 15:10] LABS: KETONE, URINE AUTO RFX NEGATIVE (NEGATIVE); NITRITE, URINE AUTO RFX NEGATIVE (NEGATIVE); RBC, URINE AUTO RFX 2 /HPF (0-3); SQUAM EPITHELIAL CELL UR AURFX 2 /HPF (0-6)
[2025-05-03 15:13] LABS: LEUKOCYTE ESTERASE UR AUTO RFX 2+ (NEGATIVE); WBC, URINE AUTO RFX 53 /HPF (0-3)
[2025-05-03 15:15] LABS: BASO # 0.1 10^3/uL (0.0-0.2); BASO % 1.3 % (0.0-1.0); EOS # 0.0 10^3/uL (0.0-0.5); EOS % 0.3 % (0.0-3.0); LYMPH # 1.9 10^3/uL (1.5-5.0); LYMPH % 19.2 % (24.0-44.0); MONO # 1.1 10^3/uL (0.0-0.8); MONO % 10.9 % (2.0-8.0); NEUTROPHILS # 6.8 10^3/uL (1.5-8.5); NEUTROPHILS % 68.0 % (36.0-66.0); PLATELET COUNT, AUTOMATED 477 10^3/uL (150-450)
[2025-05-03 15:27] LABS: ALT/SGPT 11 U/L (7.0-40); AST/SGOT 18 U/L (<34); CALCIUM LEVEL 9.0 MG/DL (8.3-10.6); CARBON DIOXIDE LEVEL 28 MMOL/L (20-31); CHLORIDE LEVEL 99 MMOL/L (98-107); CREATININE FOR GFR 0.57 MG/DL (0.70-1.30); GLOMERULAR FILTRATION RATE > 90.0 (>49); POTASSIUM SERUM 4.0 MMOL/L (3.5-5.1); SODIUM LEVEL 135 MMOL/L (136-145)
[2025-05-03] MEDS ORDERED: CIPR500T39 PO (16:52)
[2025-05-03 17:02] VITALS: BP 136/84; TEMP 96.7; O2SAT 99
[2025-05-03] MEDS: CIPROFLOXACIN 500 MG TABLET PO ONE (17:04)
== END 2025-05-03 17:15 | disposition home or self-care (01) ==
LOC: M ED 14:07 → EDBD 14:07 → M ED 17:15
DX: N10 Acute pyelonephritis (principal); J44.9 Chronic obstructive pulmonary disease, unspecified; F17.210 Nicotine dependence, cigarettes, uncomplicated; Z88.2 Allergy status to sulfonamides; Z79.51 Long term (current) use of inhaled steroids; Z79.2 Long term (current) use of antibiotics; Z79.899 Other long term (current) drug therapy

== ENCOUNTER 2025-05-07 17:45 | Emergency (ER) | payer MEDICARE ==
[~2025-05-07] VITALS: Ht 172.7 cm; Wt 54.6 kg
[~2025-05-07 17:45] MED LIST changes: +CIPR500T39 PO
[2025-05-07] MEDS ORDERED: ISOVUE-370 76% 100 ML VIAL As Ordered ONE (18:24)
[2025-05-07 18:27] LABS: KETONE, URINE AUTO RFX NEGATIVE (NEGATIVE); NITRITE, URINE AUTO RFX NEGATIVE (NEGATIVE); RBC, URINE AUTO RFX 1 /HPF (0-3); SQUAM EPITHELIAL CELL UR AURFX 2 /HPF (0-6); WBC, URINE AUTO RFX 9 /HPF (0-3)
[2025-05-07 18:30] LABS: LEUKOCYTE ESTERASE UR AUTO RFX TRACE (NEGATIVE)
[2025-05-07 18:41] LABS: BASO # 0.1 10^3/uL (0.0-0.2); BASO % 1.4 % (0.0-1.0); EOS # 0.1 10^3/uL (0.0-0.5); EOS % 0.9 % (0.0-3.0); LYMPH # 2.1 10^3/uL (1.5-5.0); LYMPH % 25.1 % (24.0-44.0); MONO # 1.2 10^3/uL (0.0-0.8); MONO % 13.9 % (2.0-8.0); NEUTROPHILS # 4.9 10^3/uL (1.5-8.5); NEUTROPHILS % 58.5 % (36.0-66.0); PLATELET COUNT, AUTOMATED 464 10^3/uL (150-450)
[2025-05-07 18:45] LABS: ETHYL ALCOHOL (ETHANOL) < 0.003 % (0.000-0.010)
[2025-05-07 18:47] LABS: ALT/SGPT 14 U/L (7.0-40); AST/SGOT 24 U/L (<34)
[2025-05-07 21:57] VITALS: BP 119/68; TEMP 96.5; O2SAT 94
== END 2025-05-07 22:18 | disposition home or self-care (01) ==
LOC: M ED 17:45 → EDBD 17:45 → M ED 22:18
DX: N39.0 Urinary tract infection, site not specified (principal); R10.9 Unspecified abdominal pain; R94.31 Abnormal electrocardiogram [ECG] [EKG]; K57.30 Diverticulosis of large intestine without perforation or abscess without bleeding; K21.9 Gastro-esophageal reflux disease without esophagitis; I10 Essential (primary) hypertension; J44.9 Chronic obstructive pulmonary disease, unspecified; F43.10 Post-traumatic stress disorder, unspecified; F17.210 Nicotine dependence, cigarettes, uncomplicated; F10.10 Alcohol abuse, uncomplicated; Z88.2 Allergy status to sulfonamides
CPT/HCPCS: 36415; 74177; 80047; 80076; 81001; 82077; 83605; 83690; 85025; 87086; 93005; 93041; 99285; Q9967

== ENCOUNTER 2025-07-10 09:11 | Emergency (ER) | payer MEDICARE, MEDICAID ==
[~2025-07-10] VITALS: Ht 175.3 cm; Wt 60.5 kg
[2025-07-10 09:36] LABS: BASO # 0.1 10^3/uL (0.0-0.2); BASO % 1.1 % (0.0-1.0); EOS # 0.0 10^3/uL (0.0-0.5); EOS % 0.2 % (0.0-3.0); LYMPH # 2.3 10^3/uL (1.5-5.0); LYMPH % 20.6 % (24.0-44.0); MONO # 1.1 10^3/uL (0.0-0.8); MONO % 9.4 % (2.0-8.0); NEUTROPHILS # 7.6 10^3/uL (1.5-8.5); NEUTROPHILS % 68.4 % (36.0-66.0); PLATELET COUNT, AUTOMATED 532 10^3/uL (150-450)
[2025-07-10 10:01] LABS: ALT/SGPT 12 U/L (7.0-40); AST/SGOT 18 U/L (<34); CALCIUM LEVEL 9.5 MG/DL (8.3-10.6); CARBON DIOXIDE LEVEL 26 MMOL/L (20-31); CHLORIDE LEVEL 99 MMOL/L (98-107); CREATININE FOR GFR 0.65 MG/DL (0.70-1.30); GLOMERULAR FILTRATION RATE > 90.0 (>49); POTASSIUM SERUM 4.4 MMOL/L (3.5-5.1); SODIUM LEVEL 131 MMOL/L (136-145)
[2025-07-10] MEDS: NS (Normal Saline) 0.9% 1,000 ML IV ONE (10:15)
[2025-07-10] MEDS ORDERED: ISOVUE-370 76% 100 ML VIAL As Ordered ONE (10:17)
[2025-07-10] MEDS: KETOROLAC 30 MG/ML 1 ML VIAL IV ONE (11:15)
[2025-07-10 11:56] LABS: KETONE, URINE AUTO RFX NEGATIVE (NEGATIVE); MUCUS, URINE RFX SMALL (NEGATIVE); NITRITE, URINE AUTO RFX NEGATIVE (NEGATIVE); RBC, URINE AUTO RFX 1 /HPF (0-3); SQUAM EPITHELIAL CELL UR AURFX 1 /HPF (0-6); WBC, URINE AUTO RFX 7 /HPF (0-3)
[2025-07-10 11:59] LABS: LEUKOCYTE ESTERASE UR AUTO RFX TRACE (NEGATIVE)
[2025-07-10] MEDS: ACETAMINOPHEN 500 MG TAB PO ONE (13:09)
[2025-07-10 13:29] LABS: HIV 1&2 SCREEN NEGATIVE (NEGATIVE)
[2025-07-10 13:50] LABS: Trichomonas vaginalis (AMP) NOT DETECTED (NEGATIVE)
[2025-07-10 14:13] LABS: GC DNA AMPLIFICATION NEGATIVE (NEGATIVE)
[2025-07-10 14:42] VITALS: BP 136/72; TEMP 98.7; O2SAT 100
== END 2025-07-10 14:56 | disposition home or self-care (01) ==
LOC: M ED 09:11
DX: R10.32 Left lower quadrant pain (principal); M25.572 Pain in left ankle and joints of left foot; S93.402A Sprain of unspecified ligament of left ankle, initial encounter; Y92.9 Unspecified place or not applicable; Y93.9 Activity, unspecified; Y99.9 Unspecified external cause status; I10 Essential (primary) hypertension; K21.9 Gastro-esophageal reflux disease without esophagitis; N20.0 Calculus of kidney; G40.909 Epilepsy, unspecified, not intractable, without status epilepticus; J44.9 Chronic obstructive pulmonary disease, unspecified; F17.210 Nicotine dependence, cigarettes, uncomplicated; Z79.51 Long term (current) use of inhaled steroids; Z79.2 Long term (current) use of antibiotics; Z79.899 Other long term (current) drug therapy; Z88.2 Allergy status to sulfonamides; Z11.3 Encounter for screening for infections with a predominantly sexual mode of transmission; Z72.89 Other problems related to lifestyle; R09.89 Other specified symptoms and signs involving the circulatory and respiratory systems
CPT/HCPCS: 73590; 73610; 74177; 76870; 80048; 80076; 81001; 83690; 85025; 86780; 87086; 87389; 87661; 87810; 87850; 93971; 93976; 96361; 96374; 99285; J1885; Q9967